=== PATIENT | male | born 1955 | race Caucasian/White ===

== ENCOUNTER → 2017-04-15 | Outpatient (REF) | payer OTHER ==
[~2017-04-15] MED LIST: /PANT40TA OR; ASPI81TA83 OR; CAND16TA OR; COLA100C2 OR; LIDO5DIS EX; MILKSUS OR; MULTIVIT PO; NABU750T OR; SKEL800T5 OR; dulcolax PR; norco PO
[2017-04-15 13:16] LABS: EOS # 0.2 K/mm3 (0.0-0.50); EOS % 3.2 % (0.0-3.0); LARGE UNSTAINED CELL # 0.1 K/mm3 (0.0-0.4); LARGE UNSTAINED CELL % 2.8 % (0.0-4.0); LYMPH # 1.6 K/mm3 (1.5-4.5); LYMPH % 30.5 % (24.0-44.0); MEAN CORPUSCULAR HEMOGLOBIN 32.7 pg (27.0-33.0); MEAN CORPUSCULAR HGB CONC 34.6 g/dl (32.0-36.5); MEAN CORPUSCULAR VOLUME 94.6 fl (80.0-96.0); MONO # 0.4 K/mm3 (0.0-0.8); MONO % 7.8 % (0.0-5.0); NEUTROPHILS # 2.7 K/mm3 (1.8-7.7); NEUTROPHILS % 54.6 % (36.0-66.0); PLATELET COUNT, AUTOMATED 208 k/mm3 (150-450); RED CELL DISTRIBUTION WIDTH 12.1 % (11.5-14.5); WHITE BLOOD COUNT 4.9 K/mm3 (4.0-10.0)
[2017-04-15 13:31] LABS: PERCENT SATURATION 95.4 % (19.7-37.4)
== END ==
LOC: M SFHCPLAZ 07:53
PROVIDERS: ATTEND Family Medicine
DX: D50.9 Iron deficiency anemia, unspecified (principal); R73.01 Impaired fasting glucose; E78.5 Hyperlipidemia, unspecified; I10 Essential (primary) hypertension

== ENCOUNTER → 2017-06-04 | Outpatient (CLI) | payer OTHER ==
--- NOTE | 2017-06-04 19:04 | REP ---
Left tibia-fibula two views: There are no comparisons. There is no fracture or dislocation. 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 If this is the location of the patient's symptoms, consider a radionuclide bone scan for further evaluation. There are accessory ossicles at the distal tips of the medial and lateral malleoli. Otherwise, negative left tibia fibula. Signed by Iglesia Desai MD 06/04/2017 06:55 P
== END ==
LOC: M WUC 17:21
PROVIDERS: ATTEND Physician Assistant
DX: M25.872 Other specified joint disorders, left ankle and foot (principal); M89.28 Other disorders of bone development and growth, other site

== ENCOUNTER → 2017-08-22 | Outpatient (REF) | payer OTHER ==
[2017-08-22 13:42] LABS: ALBUMIN 3.9 GM/DL (3.2-5.2); ALBUMIN/GLOBULIN RATIO 1.11 (1.00-1.93); ALKALINE PHOSPHATASE 86 U/L (45-117); ALT/SGPT 49 U/L (12-78); ANION GAP 7 MEQ/L (8-16); AST/SGOT 35 U/L (7-37); BILIRUBIN,TOTAL 1.4 MG/DL (0.2-1.0); BLOOD UREA NITROGEN 11 MG/DL (7-18); CALCIUM LEVEL 8.9 MG/DL (8.8-10.2); CARBON DIOXIDE LEVEL 29 MEQ/L (21-32); CHLORIDE LEVEL 104 MEQ/L (98-107); CREATININE FOR GFR 0.94 MG/DL (0.70-1.30); FERRITIN 133 NG/ML (26-388); GLOMERULAR FILTRATION RATE > 60.0 (>49); GLUCOSE, FASTING 121 MG/DL (80-110); PERCENT SATURATION 91.6 % (19.7-50.0); POTASSIUM SERUM 4.4 MEQ/L (3.5-5.1); SODIUM LEVEL 140 MEQ/L (136-145); TOTAL IRON BINDING CAPACITY 273 UG/DL (250-450); TOTAL PROTEIN 7.4 GM/DL (6.4-8.2)
[2017-08-22 13:48] LABS: INR 0.98
== END ==
LOC: M SFHCPLAZ 09:26
PROVIDERS: ATTEND Family Medicine
DX: E83.119 Hemochromatosis, unspecified (principal); D50.9 Iron deficiency anemia, unspecified; R73.01 Impaired fasting glucose

== ENCOUNTER 2017-10-17 10:42 | Day surgery (SDC) | payer BC, OTHER ==
[2017-10-17] MEDS: LR 1,000 ML IV ×2 (11:43→18:55)
[2017-10-17] MEDS ORDERED: fentaNYL 100 MCG/2 ML INJECTION (J3010) As Ordered (13:34)
[2017-10-17] MEDS ORDERED: MIDAZOLAM INJ 2 MG/2 ML VIAL (J2250) As Ordered (13:34)
[2017-10-17] MEDS: LIDOCAINE 1% SDV INJ 30 ML VIAL As Ordered (15:18)
[2017-10-17] MEDS: BACITRACIN PWD 50,000 UNITS VIAL As Ordered (15:35)
[2017-10-17] MEDS: ISOVUE-300 61% 50ML VIAL (Q9967) As Ordered (15:35)
[2017-10-17] MEDS: AMIODARONE HCL 360 MG/200 ML PREMIXED BAG (NEXTERONE) As Ordered (15:36)
[2017-10-17] MEDS ORDERED: fentaNYL 100 MCG/2 ML INJECTION (J3010) IV (15:45)
[2017-10-17] MEDS ORDERED: METOCLOPRAMIDE INJ 10MG/2ML VIAL (J2765) IV (15:45)
[2017-10-17] MEDS ORDERED: PERCOCET 5MG/325MG TAB PO (15:45)
[2017-10-17] MEDS ORDERED: ONDANSETRON 4MG/2ML VIAL (J2405) IV (15:45)
[2017-10-17] MEDS ORDERED: ACETAMINOPH W/CODEINE #3 TAB UD PO (16:30)
[2017-10-17] MEDS ORDERED: XYZAL 5 MG PO (16:30)
[2017-10-17] MEDS ORDERED: NITROGLYCERIN 0.4 MG SUBL TABLET SL (16:30)
[2017-10-17] MEDS ORDERED: ACETAMINOPHEN TAB 650MG DOSE (2X325MG) PO (16:30)
[2017-10-17] MEDS: METOPROLOL TART 25 MG TABLET PO ×2 (21:00→21:13)
[2017-10-17] MEDS: ATORVASTATIN 20 MG TAB PO (21:13)
[2017-10-17] MEDS: CEFAZOLIN SOD 1 GM in APPROPRIATE DILUENT 1 EA IV (22:15)
[2017-10-18] MEDS: CEFAZOLIN SOD 1 GM in APPROPRIATE DILUENT 1 EA IV ×2 (05:59→13:36)
[2017-10-18] MEDS: METOPROLOL TART 25 MG TABLET PO (09:12)
[2017-10-18] MEDS: ASPIRIN 81 MG ENTERIC TAB PO (09:12)
[2017-10-18] MEDS ORDERED: SLF 3 ML SYR IV (11:30)
[2017-10-18] MEDS: SLF 3 ML SYR IV (13:36)
== END 2017-10-18 14:45 | disposition home or self-care (01) ==
LOC: M SDC 10:42 → M PCU 16:37 → M SDC 10-18 14:45
DX: I44.0 Atrioventricular block, first degree (principal); I48.0 Paroxysmal atrial fibrillation; I77.819 Aortic ectasia, unspecified site; I25.10 Atherosclerotic heart disease of native coronary artery without angina pectoris; I11.9 Hypertensive heart disease without heart failure; Z98.61 Coronary angioplasty status; Z79.82 Long term (current) use of aspirin; Z79.899 Other long term (current) drug therapy
CPT/HCPCS: 33208

== ENCOUNTER → 2017-11-07 | Outpatient (CLI) | payer BC, OTHER | LOC: M RAD 07:54 | DX: E83.119 Hemochromatosis, unspecified (principal); R93.3 Abnormal findings on diagnostic imaging of other parts of digestive tract ==

== ENCOUNTER 2017-11-11 07:59 | Outpatient (CLI) | payer BC, OTHER ==
[2017-11-11 08:32] LABS: BASO % 0.7 % (0.0-1.0); EOS # 0.2 10^3/uL (0.0-0.50); EOS % 2.8 % (0.0-3.0); HEMATOCRIT 44.5 % (42.0-52.0); HEMOGLOBIN 15.6 g/dl (14.0-18.0); IMMATURE GRANULOCYTE % 0.2 % (0-3.0); LYMPH # 1.7 10^3/uL (1.5-4.5); LYMPH % 28.3 % (24.0-44.0); MEAN CORPUSCULAR HGB CONC 35.1 g/dl (32.0-36.5); MEAN CORPUSCULAR VOLUME 91.2 fl (80.0-96.0); MONO # 0.6 10^3/uL (0.0-0.8); MONO % 9.7 % (0.0-5.0); NEUTROPHILS # 3.5 10^3/uL (1.8-7.7); NEUTROPHILS % 58.3 % (36.0-66.0); PLATELET COUNT, AUTOMATED 212 10^3/uL (150-450); RED BLOOD COUNT 4.88 10^6/uL (4.30-6.10); RED CELL DISTRIBUTION WIDTH 11.1 % (11.5-14.5)
[2017-11-11 09:05] LABS: FERRITIN 121 NG/ML (26-388); IRON (FE) 132 UG/DL (65-175); PERCENT SATURATION 57.1 % (19.7-50.0); TOTAL IRON BINDING CAPACITY 231 UG/DL (250-450)
== END 2017-11-11 09:05 | disposition home or self-care (01) ==
LOC: M INFU 07:59
DX: E83.110 Hereditary hemochromatosis (principal); Z79.899 Other long term (current) drug therapy; Z88.8 Allergy status to other drugs, medicaments and biological substances; J30.9 Allergic rhinitis, unspecified; Z91.018 Allergy to other foods; Z95.5 Presence of coronary angioplasty implant and graft; Z95.0 Presence of cardiac pacemaker
CPT/HCPCS: 99195

== ENCOUNTER 2017-11-18 07:51 | Outpatient (CLI) | payer BC, OTHER ==
[2017-11-18 08:14] LABS: BASO # 0.1 10^3/uL (0.0-0.2); BASO % 0.9 % (0.0-1.0); EOS # 0.1 10^3/uL (0.0-0.50); EOS % 2.2 % (0.0-3.0); HEMOGLOBIN 16.3 g/dl (14.0-18.0); IMMATURE GRANULOCYTE % 0.2 % (0-3.0); LYMPH # 1.8 10^3/uL (1.5-4.5); LYMPH % 27.3 % (24.0-44.0); MEAN CORPUSCULAR HEMOGLOBIN 32.7 pg (27.0-33.0); MEAN CORPUSCULAR HGB CONC 35.4 g/dl (32.0-36.5); MEAN CORPUSCULAR VOLUME 92.2 fl (80.0-96.0); MONO # 0.8 10^3/uL (0.0-0.8); MONO % 13.1 % (0.0-5.0); NEUTROPHILS # 3.6 10^3/uL (1.8-7.7); NEUTROPHILS % 56.3 % (36.0-66.0); PLATELET COUNT, AUTOMATED 218 10^3/uL (150-450); RED BLOOD COUNT 4.99 10^6/uL (4.30-6.10); RED CELL DISTRIBUTION WIDTH 11.4 % (11.5-14.5); WHITE BLOOD COUNT 6.4 10^3/uL (4.0-10.0)
[2017-11-18 08:51] LABS: FERRITIN 88 NG/ML (26-388); IRON (FE) 92 UG/DL (65-175); PERCENT SATURATION 38.3 % (19.7-50.0); TOTAL IRON BINDING CAPACITY 240 UG/DL (250-450)
== END 2017-11-18 08:45 | disposition home or self-care (01) ==
LOC: M INFU 07:51
DX: E83.119 Hemochromatosis, unspecified (principal); Z79.899 Other long term (current) drug therapy; J30.2 Other seasonal allergic rhinitis; Z91.018 Allergy to other foods; Z91.030 Bee allergy status; Z95.5 Presence of coronary angioplasty implant and graft; Z95.0 Presence of cardiac pacemaker
CPT/HCPCS: 99195

== ENCOUNTER 2017-11-25 08:13 | Outpatient (CLI) | payer BC, OTHER ==
[2017-11-25 09:23] LABS: BASO % 0.8 % (0.0-1.0); EOS # 0.1 10^3/uL (0.0-0.50); EOS % 2.5 % (0.0-3.0); HEMATOCRIT 41.4 % (42.0-52.0); HEMOGLOBIN 14.5 g/dl (14.0-18.0); IMMATURE GRANULOCYTE % 0.2 % (0-3.0); LYMPH # 1.5 10^3/uL (1.5-4.5); LYMPH % 31.4 % (24.0-44.0); MEAN CORPUSCULAR HEMOGLOBIN 32.6 pg (27.0-33.0); MONO # 0.6 10^3/uL (0.0-0.8); MONO % 12.2 % (0.0-5.0); NEUTROPHILS # 2.6 10^3/uL (1.8-7.7); NEUTROPHILS % 52.9 % (36.0-66.0); PLATELET COUNT, AUTOMATED 202 10^3/uL (150-450); RED BLOOD COUNT 4.45 10^6/uL (4.30-6.10); RED CELL DISTRIBUTION WIDTH 11.8 % (11.5-14.5); WHITE BLOOD COUNT 4.8 10^3/uL (4.0-10.0)
[2017-11-25 09:52] LABS: FERRITIN 59 NG/ML (26-388); IRON (FE) 104 UG/DL (65-175); PERCENT SATURATION 40.5 % (19.7-50.0); TOTAL IRON BINDING CAPACITY 257 UG/DL (250-450)
== END 2017-11-25 09:05 | disposition home or self-care (01) ==
LOC: M INFU 08:13
DX: E83.119 Hemochromatosis, unspecified (principal); Z95.0 Presence of cardiac pacemaker; Z91.018 Allergy to other foods; Z91.030 Bee allergy status; Z79.01 Long term (current) use of anticoagulants; Z79.82 Long term (current) use of aspirin; Z79.899 Other long term (current) drug therapy
CPT/HCPCS: 99195

== ENCOUNTER 2017-12-02 07:56 | Outpatient (CLI) | payer BC, OTHER ==
[2017-12-02 08:29] LABS: BASO % 0.5 % (0.0-1.0); EOS # 0.2 10^3/uL (0.0-0.50); EOS % 1.9 % (0.0-3.0); HEMATOCRIT 42.9 % (42.0-52.0); HEMOGLOBIN 14.8 g/dl (14.0-18.0); IMMATURE GRANULOCYTE % 0.2 % (0-3.0); LYMPH # 1.5 10^3/uL (1.5-4.5); LYMPH % 17.8 % (24.0-44.0); MEAN CORPUSCULAR HGB CONC 34.5 g/dl (32.0-36.5); MEAN CORPUSCULAR VOLUME 92.7 fl (80.0-96.0); MONO # 0.9 10^3/uL (0.0-0.8); MONO % 10.6 % (0.0-5.0); NEUTROPHILS # 5.9 10^3/uL (1.8-7.7); PLATELET COUNT, AUTOMATED 198 10^3/uL (150-450); RED BLOOD COUNT 4.63 10^6/uL (4.30-6.10); RED CELL DISTRIBUTION WIDTH 11.9 % (11.5-14.5); WHITE BLOOD COUNT 8.6 10^3/uL (4.0-10.0)
[2017-12-02 09:05] LABS: FERRITIN 33 NG/ML (26-388); IRON (FE) 74 UG/DL (65-175); TOTAL IRON BINDING CAPACITY 264 UG/DL (250-450)
== END 2017-12-02 08:35 | disposition home or self-care (01) ==
LOC: M INFU 07:56
DX: E83.119 Hemochromatosis, unspecified (principal); I10 Essential (primary) hypertension; Z79.82 Long term (current) use of aspirin; Z79.899 Other long term (current) drug therapy; Z91.030 Bee allergy status; Z91.018 Allergy to other foods; Z95.0 Presence of cardiac pacemaker
CPT/HCPCS: 99195

== ENCOUNTER → 2018-03-03 | Outpatient (REF) | payer OTHER ==
[2018-03-03 14:12] LABS: APPEARANCE, URINE HAZY (CLEAR); BACTERIA, URINE AUTO NEGATIVE (NEGATIVE); BILIRUBIN, URINE AUTO NEGATIVE (NEGATIVE); BLOOD, URINE BLOOD NEGATIVE (NEGATIVE); COLOR, URINE YELLOW (YELLOW); GLUCOSE, URINE (UA) AUTO NEGATIVE (NEGATIVE); KETONE, URINE AUTO NEGATIVE (NEGATIVE); LEUKOCYTE ESTERASE, URINE AUTO NEGATIVE (NEGATIVE); MUCUS, URINE SMALL (NEGATIVE); NITRITE, URINE AUTO NEGATIVE (NEGATIVE); PROTEIN, URINE AUTO NEGATIVE (NEGATIVE); RBC, URINE AUTO 0 /HPF (0-3); SPECIFIC GRAVITY URINE AUTO 1.016 (1.002-1.035); SQUAMOUS EPITHELIAL CELL UR AU 0 /HPF (0-6); WBC, URINE AUTO 2 /HPF (0-3)
[2018-03-03 14:29] LABS: BILIRUBIN,DIRECT 0.3 MG/DL (0.0-0.2); C REACTIVE PROTEIN QUANTITATIV < 0.30 MG/DL (0.00-0.30); CHOLESTEROL LEVEL 94 MG/DL (<200); CHOLESTEROL RISK RATIO 2.136 (<5); CPK CREATINE PHOSPHOKINASE 152 U/L (39-308); ESTIMATED AVERAGE GLUCOSE 114 MG/DL (60-110); FERRITIN 24 NG/ML (26-388); FREE T4 0.82 NG/DL (0.76-1.46); HDL CHOLESTEROL 44 MG/DL (>40); HEMOGLOBIN A1c 5.6 %; IRON (FE) 135 UG/DL (65-175); LDL CHOLESTEROL 35.6 MG/DL (<100); NON-HDL-C 50 MG/DL; PSA SCREENING 0.45 NG/ML (< 4.0); TOTAL IRON BINDING CAPACITY 287 UG/DL (250-450); TRIGLYCERIDES LEVEL 72 MG/DL (<150)
[2018-03-03 14:54] LABS: MALB URINE SIEMENS 52.4 MG/L
[2018-03-04 14:16] LABS: INSULIN LEVEL 14.9 uIU/mL (2.6-24.9)
== END ==
LOC: M SFHCPLAZ 09:30
DX: E83.119 Hemochromatosis, unspecified (principal); E78.5 Hyperlipidemia, unspecified; R73.01 Impaired fasting glucose; Z12.5 Encounter for screening for malignant neoplasm of prostate

== ENCOUNTER → 2018-05-08 | Outpatient (REF) | payer OTHER ==
[2018-05-08 10:52] LABS: BASO % 0.7 % (0.0-1.0); EOS # 0.1 10^3/uL (0.0-0.50); EOS % 1.6 % (0.0-3.0); HEMATOCRIT 46.9 % (42.0-52.0); HEMOGLOBIN 15.8 g/dl (13.5-17.5); IMMATURE GRANULOCYTE % 0.2 % (0-3.0); LYMPH # 1.5 10^3/uL (1.5-4.5); MEAN CORPUSCULAR HEMOGLOBIN 30.9 pg (27.0-33.0); MEAN CORPUSCULAR HGB CONC 33.7 g/dl (32.0-36.5); MEAN CORPUSCULAR VOLUME 91.6 fl (80.0-96.0); MONO # 0.3 10^3/uL (0.0-0.8); NEUTROPHILS # 2.3 10^3/uL (1.8-7.7); NEUTROPHILS % 53.5 % (36.0-66.0); RED BLOOD COUNT 5.12 10^6/uL (4.30-6.10); RED CELL DISTRIBUTION WIDTH 12.7 % (11.5-14.5); WHITE BLOOD COUNT 4.3 10^3/uL (4.0-10.0)
[2018-05-08 10:57] LABS: POS COUNT POS FLAG
[2018-05-08 11:30] LABS: ALBUMIN 3.7 GM/DL (3.2-5.2); ANION GAP 10 MEQ/L (8-16); BLOOD UREA NITROGEN 21 MG/DL (7-18); CALCIUM LEVEL 8.4 MG/DL (8.8-10.2); CARBON DIOXIDE LEVEL 24 MEQ/L (21-32); CHLORIDE LEVEL 108 MEQ/L (98-107); CREATININE FOR GFR 0.94 MG/DL (0.70-1.30); GLOMERULAR FILTRATION RATE > 60.0 (>49); GLUCOSE, FASTING 147 MG/DL (70-100); PHOSPHORUS LEVEL 2.4 MG/DL (2.5-4.9); POTASSIUM SERUM 4.5 MEQ/L (3.5-5.1); SODIUM LEVEL 142 MEQ/L (136-145)
== END ==
LOC: M LABDRAW1 09:19
DX: I11.9 Hypertensive heart disease without heart failure (principal); I48.0 Paroxysmal atrial fibrillation; I25.10 Atherosclerotic heart disease of native coronary artery without angina pectoris

== ENCOUNTER → 2018-08-31 | Outpatient (CLI) | payer BC, OTHER | LOC: M RAD 11:38 | DX: I48.0 Paroxysmal atrial fibrillation (principal); Z95.0 Presence of cardiac pacemaker | CPT/HCPCS: 71046 ==

== ENCOUNTER → 2018-09-04 | Outpatient (REF) | payer OTHER ==
[2018-09-04 12:06] LABS: BASO # 0.1 10^3/uL (0.0-0.2); BASO % 1.1 % (0.0-1.0); EOS # 0.1 10^3/uL (0.0-0.50); EOS % 2.6 % (0.0-3.0); HEMATOCRIT 45.5 % (42.0-52.0); HEMOGLOBIN 14.9 g/dl (13.5-17.5); IMMATURE GRANULOCYTE % 0.2 % (0-3.0); LYMPH # 1.4 10^3/uL (1.5-4.5); LYMPH % 29.3 % (24.0-44.0); MEAN CORPUSCULAR HEMOGLOBIN 29.7 pg (27.0-33.0); MEAN CORPUSCULAR HGB CONC 32.7 g/dl (32.0-36.5); MEAN CORPUSCULAR VOLUME 90.6 fl (80.0-96.0); MONO # 0.6 10^3/uL (0.0-0.8); NEUTROPHILS # 2.5 10^3/uL (1.8-7.7); NEUTROPHILS % 53.8 % (36.0-66.0); PLATELET COUNT, AUTOMATED 240 10^3/uL (150-450); RED BLOOD COUNT 5.02 10^6/uL (4.30-6.10); RED CELL DISTRIBUTION WIDTH 12.9 % (11.5-14.5); RETIC HEMOGLOBIN EQUIVALENT 32.1 pg (24-36); RETICULOCYTE # 63.3 10^9/L (17-77); RETICULOCYTE % 1.3 % (0.5-1.5); WHITE BLOOD COUNT 4.6 10^3/uL (4.0-10.0)
[2018-09-04 12:49] LABS: ALBUMIN/GLOBULIN RATIO 1.14 (1.00-1.93); ALKALINE PHOSPHATASE 91 U/L (45-117); ALT/SGPT 42 U/L (12-78); ANION GAP 9 MEQ/L (8-16); AST/SGOT 33 U/L (7-37); BILIRUBIN,TOTAL 1.1 MG/DL (0.2-1.0); BLOOD UREA NITROGEN 14 MG/DL (7-18); CALCIUM LEVEL 8.9 MG/DL (8.8-10.2); CARBON DIOXIDE LEVEL 25 MEQ/L (21-32); CHLORIDE LEVEL 104 MEQ/L (98-107); CREATININE FOR GFR 0.96 MG/DL (0.70-1.30); FERRITIN 18 NG/ML (26-388); FREE T4 1.11 NG/DL (0.76-1.46); GLOMERULAR FILTRATION RATE > 60.0 (>49); GLUCOSE, FASTING 97 MG/DL (70-100); IRON (FE) 89 UG/DL (65-175); MAGNESIUM LEVEL 2.4 MG/DL (1.8-2.4); PERCENT SATURATION 30.8 % (19.7-50.0); POTASSIUM SERUM 4.7 MEQ/L (3.5-5.1); SODIUM LEVEL 138 MEQ/L (136-145); THYROID STIMULATING HORMONE 0.852 uIU/ML (0.358-3.740); TOTAL IRON BINDING CAPACITY 289 UG/DL (250-450); TOTAL PROTEIN 7.5 GM/DL (6.4-8.2); VITAMIN B12 LEVEL 1183 PG/ML (247-911)
[2018-09-04 15:07] LABS: ESTIMATED AVERAGE GLUCOSE 134 MG/DL (60-110); HEMOGLOBIN A1c 6.3 %
== END ==
LOC: M SFHCPLAZ 07:49
DX: E83.119 Hemochromatosis, unspecified (principal); R73.01 Impaired fasting glucose
CPT/HCPCS: 83550

== ENCOUNTER 2019-02-02 17:21 | Observation (INO) | payer BC, OTHER ==
[~2019-02-02] VITALS: Ht 177.8 cm; Wt 100.2 kg
[~2019-02-02 17:21] MED LIST changes: -/PANT40TA OR; +ASPI-255 PO; +ASPI81TA85 PO; +ATOR80TA59 PO; +CARV12.5 PO; +ELIQ5TAB PO; +LISI-542 PO; +METO1TAB87 PO; +MULT1TAB10 PO; +NITROGLYCERIN PO; +PROT1TAB2 OR; +VIAG100T PO; +XYZA5TAB2 PO
[2019-02-02] MEDS ORDERED: AMIO200T PO (17:39)
[2019-02-02 18:08] LABS: BASO # 0.1 10^3/uL (0.0-0.2); BASO % 0.7 % (0.0-1.0); EOS # 0.1 10^3/uL (0.0-0.50); EOS % 1.3 % (0.0-3.0); HEMATOCRIT 44.4 % (42.0-52.0); HEMOGLOBIN 14.2 g/dl (13.5-17.5); LYMPH # 1.2 10^3/uL (1.5-4.5); LYMPH % 17.5 % (24.0-44.0); MEAN CORPUSCULAR HEMOGLOBIN 27.4 pg (27.0-33.0); MEAN CORPUSCULAR VOLUME 85.5 fl (80.0-96.0); MONO # 0.6 10^3/uL (0.0-0.8); MONO % 8.5 % (0.0-5.0); NEUTROPHILS % 71.7 % (36.0-66.0); PLATELET COUNT, AUTOMATED 252 10^3/uL (150-450); RED BLOOD COUNT 5.19 10^6/uL (4.30-6.10); WHITE BLOOD COUNT 6.9 10^3/uL (4.0-10.0)
--- NOTE | 2019-02-02 18:37 | REPVR ---
EXAM: CT Head Without Contrast EXAM DATE/TIME: 02/02/2019 5:47 PM CLINICAL HISTORY: 63 years old, male; Signs and symptoms; Altered mental status/memory loss TECHNIQUE: Imaging protocol: Axial computed tomography images of the head without contrast. Radiation optimization: All CT scans at this facility use at least one of these dose optimization techniques: automated exposure control; mA and/or kV adjustment per patient size (includes targeted exams where dose is matched to clinical indication); or iterative reconstruction. COMPARISON: CT Head without contrast 10/27/2012 7:38 PM FINDINGS: Brain: Bilateral basal ganglia calcifications. Otherwise unremarkable. Ventricles: Normal. No ventriculomegaly. Bones/joints: Unremarkable. No acute fracture. Sinuses: Visualized sinuses are unremarkable. No fluid levels. Mastoid air cells: Visualized mastoid air cells are well aerated. No mastoid effusion. Soft tissues: Unremarkable. IMPRESSION: No acute findings. Electronically signed by: Sachin Gray On 02/02/2019 18:36:53 PM
[2019-02-02 18:39] LABS: ALBUMIN 3.9 GM/DL (3.2-5.2); ALT/SGPT 37 U/L (12-78); BILIRUBIN,DIRECT 0.2 MG/DL (0.0-0.2); BILIRUBIN,TOTAL 0.9 MG/DL (0.2-1.0); BLOOD UREA NITROGEN 17 MG/DL (7-18); CALCIUM LEVEL 8.9 MG/DL (8.8-10.2); CARBON DIOXIDE LEVEL 26 MEQ/L (21-32); CHLORIDE LEVEL 106 MEQ/L (98-107); CPK CREATINE PHOSPHOKINASE 181 U/L (39-308); CREATININE FOR GFR 1.28 MG/DL (0.70-1.30); GLOMERULAR FILTRATION RATE > 60.0 (>49); GLUCOSE, FASTING 118 MG/DL (70-100); POTASSIUM SERUM 4.8 MEQ/L (3.5-5.1); SODIUM LEVEL 138 MEQ/L (136-145); TOTAL PROTEIN 8.1 GM/DL (6.4-8.2); TROPONIN I < 0.02 NG/ML (< 0.10)
--- NOTE | 2019-02-02 18:45 | REPVR ---
EXAM: CT Cervical Spine Without Contrast EXAM DATE/TIME: 02/02/2019 5:59 PM CLINICAL HISTORY: 63 years old, male; Injury or trauma; Fall; Initial encounter; Blunt trauma; Additional info: Fall, neck pain TECHNIQUE: Imaging protocol: Axial computed tomography images of the cervical spine without contrast. Coronal and sagittal reformatted images were created and reviewed. Radiation optimization: All CT scans at this facility use at least one of these dose optimization techniques: automated exposure control; mA and/or kV adjustment per patient size (includes targeted exams where dose is matched to clinical indication); or iterative reconstruction. COMPARISON: No relevant prior studies available. FINDINGS: Vertebrae: Degenerative spondylosis. Degenerative changes lateralizing joint. Discs/Spinal canal/Neural foramina: Prominent intervertebral osteophytes from C2-C7. Disc osteophyte complexes from C2-C6 7 resulting in varying degrees of effacement of the ventral subarachnoid with mild cord impingement at C5-6. This moderate foraminal stenosis on the right at C3, and C4 secondary to uncinate joint hypertrophic change. Soft tissues: Unremarkable. Lungs: Lung apices are normal. IMPRESSION: Mild degenerative spondylosis. No acute findings. Electronically signed by: Sachin Gray On 02/02/2019 18:45:43 PM
--- NOTE | 2019-02-02 19:01 | REP ---
Right ribs four views: There is no rib fracture or other rib abnormality. PA chest: Comparison is 11/01/2017. There is no pneumothorax, hemothorax or pulmonary contusion. No pleural thickening. There is a dual-chamber pacemaker entering from left, unchanged. Lung mercado are clear. Cardiac size is normal. The bertin, mediastinum, skeletal structures are unremarkable. Impression: Dual chamber pacemaker. Otherwise, negative PA chest. Electronically Signed by Iglesia Desai MD 02/02/2019 06:53 P
[2019-02-02] MEDS ORDERED: METHOCARBAMOL 500 MG TAB PO ONE (19:15)
[2019-02-02] MEDS ORDERED: NS 1,000 ML IV ONE (19:15)
[2019-02-02] MEDS ORDERED: KETOROLAC 30 MG/ML VIAL (J1885) IV ONE (19:15)
[2019-02-02] MEDS ORDERED: ISOVUE-370 76% 100ML VIAL (Q9967) As Ordered ONE (19:23)
--- NOTE | 2019-02-02 19:55 | REPVR ---
EXAM: CT Angiography Chest With Contrast EXAM DATE/TIME: 02/02/2019 7:37 PM CLINICAL HISTORY: 63 years old, male; Pain; Angina pectoris; Additional info: Chest pain TECHNIQUE: Imaging protocol: Axial computed tomographic angiography images of the chest with intravenous contrast using CT angiography protocol. Coronal and sagittal reformatted images were created and reviewed. 3D rendering: MIP reconstructed images were created and reviewed. Radiation optimization: All CT scans at this facility use at least one of these dose optimization techniques: automated exposure control; mA and/or kV adjustment per patient size (includes targeted exams where dose is matched to clinical indication); or iterative reconstruction. Contrast material: ISO 370; Contrast volume: 75 ml; Contrast route: IV; COMPARISON: CR Ribs uni W-PA CHEST ONLY 02/02/2019 6:14 PM FINDINGS: Tubes, catheters and devices: Cardiac pacemaker in place. Pulmonary arteries: There are no pulmonary emboli. Aorta: There is no aortic dissection or aneurysm. Lungs: There is bibasilar compressive atelectasis. Pleural space: Normal. No pneumothorax. No pleural effusion. Heart: There is mild atherosclerotic calcification of the coronary arteries. Lymph nodes: Unremarkable. No enlarged lymph nodes. Bones/joints: The spine demonstrates mild degenerative changes. Soft tissues: Unremarkable. IMPRESSION: 1. There are no pulmonary emboli. 2. There is no aortic dissection or aneurysm. 3. There are no acute pulmonary parenchymal findings. Electronically signed by: Sachin Gray On 02/02/2019 19:55:21 PM
[2019-02-02] MEDS ORDERED: VITMTA PO (21:33)
[2019-02-02] MEDS ORDERED: NITR0.1S PO (21:33)
[2019-02-02] MEDS ORDERED: LEVOTAB10 PO (21:33)
[2019-02-02] MEDS ORDERED: ASPI-161 PO (21:33)
[2019-02-02 23:00] VITALS: BP 147/74
[2019-02-02] MEDS: APIXABAN 5 MG TAB (ELIQUIS) PO SCH (23:31)
[2019-02-02] MEDS: LISINOPRIL 5 MG TAB PO SCH (23:31)
[2019-02-02] MEDS: ATORVASTATIN 20 MG TAB PO SCH (23:31)
[2019-02-02] MEDS: CARVedilol 6.25 MG TAB PO SCH (23:31)
[2019-02-03 00:17] LABS: CPK CREATINE PHOSPHOKINASE 113 U/L (39-308); MB/CK RELATIVE INDEX 2.39 (< OR =4); TROPONIN I < 0.02 NG/ML (< 0.10)
[2019-02-03] MEDS ORDERED: KETOROLAC 30 MG/ML VIAL (J1885) IV ONE (03:15)
[2019-02-03 06:00] VITALS: BP 114/59
--- NOTE | 2019-02-03 06:00 | HPEPDOC ---
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 fib (on Eliquis) who presented to the emergency department after a syncopal episode. Patient reports being in his usual state of health as he was assisting a neighbor move a lawnmower. He states that after completing this task, he began to feel lightheaded and nauseous. Patient subsequently laid down with near complete resolution of his symptoms in a matter of minutes. After such time, the patient again stood up and began to walk toward his car to return home. It was at this time he again became dizzy/nauseated and believes he fell to the ground where he remained for a number of minutes. Once coming to, patient noted to have increasing back discomfort. He drove himself back home and only after sharing the aforementioned events with his family, was the patient persuaded to present to the emergency department. Upon presentation, patient complained of pain across his shoulder blades in the right side of his neck. Patient also reports, that earlier in the day, he did visit his legal compliance officer who successfully interrogated his pacemaker without issue. The emergency department, the patient received a number of imaging studies which included examination of the patient's head and chest. All of the information studies were negative for any acute disease processes. Patient was found to have a right sided pain or spinal muscle spasm. He was treated using a muscle relaxer, ketorolac and required additional therapy with diazepam. Orthostatics were performed and were found to be positive. Given this, the hospitalist team was consulted for further management and observation. PAST MEDICAL HISTORY: Nonalcoholic fatty liver disease Hemochromatosis, homozygote Hyperlipidemia Hypertension Lumbar degenerative disc disease Thoracic degenerative disc disease Cholelithiasis CAD status post circumflex/RCA stent placement AVB second-degree type I status post pacemaker placement Atrial fibrillation, paroxysmal PAST SURGICAL HISTORY: Right hamate surgery, April 2002 Colonoscopy, August 2011 Pacemaker placement, September 2017 SOCIAL HISTORY: Marital status: Single Resides in: Alone home Tobacco use: Lifelong nonsmoker ETOH: Patient denies alcohol use Illicit drug use: Patient denies illicit drug use FAMILY HISTORY: Father: , 68, first MT at 62 Mother: , mid-70s, for CVA and 60s Siblings: Brother, 60 at for CVA, sister with pancreatic cancer, diagnosed at 75 years old ALLERGIES: Please see below. REVIEW OF SYSTEMS: CONSTITUTIONAL: Patient denies recent subjective fevers, chills, night sweats, changes in weight or increasing fatigue HEENT: Denies headache, changes in vision, difficulty swallowing CARDIOVASCULAR: Patient presented reporting mid scapular pain which radiated anteriorly bilaterally RESPIRATORY: Patient denies any difficulty breathing, no recent history of cough GASTROINTESTINAL: Patient reports nausea immediately following syncopal episode, Patient denies any emesis, abdominal pain/discomfort, constipation or diarrhea GENITOURINARY: Denies difficulty urinating, hematuria, dysuria SKIN: Denies skin rashes or new/evolving lesions MUSCULOSKELETAL: Patient reports right-sided subscapular muscle spasm, with pain radiating anteriorly, worse with movement NEUROLOGICAL: Upon presentation, patient reported a syncopal episode, at the time of admission, patient syncope had resolved, he denied any numbness or tingling in his extremities, denies focal neurologic deficits HOME MEDICATIONS: Please see below. PHYSICAL EXAMINATION: VITAL SIGNS: Temperature 96.7, pulse 69, respiratory rate 17, blood pressure 139/78 (98), pulse oximetry 98% on room air. GENERAL APPEARANCE: Patient was interviewed and examined in the emergency department, patient was found to be seated upright in his emergency room bed, wearing hospital clothing,, alert and oriented, able to answer questions angelic ropriately participate in his care HEENT: Normocephalic, atraumatic, EOMI, good oral hygiene, trachea midline CARDIOVASCULAR: Regular rate and rhythm, normal S1 and S2, no murmurs LUNGS: Clear to ausc. bilaterally, free of wheezing rales or rhonchi ABDOMEN: Soft, nontender, nondistended MUSCULOSKELETAL: Appreciable muscle spasm in the right parathoracic musculature EXTREMITIES: No lower extremity swelling or edema, calves nontender bilaterally NEUROLOGICAL: No focal neurologic deficits, extremity weakness, difficulty speaking, aphasia PSYCHIATRIC: Mood and affect are appropriate LABORATORY DATA: See below. IMAGING: Head CT (02/02/19): No acute findings Ribs x-ray (02/02/19): Dual-chamber pacemaker, otherwise negative PA chest. Cervical spine CT(02/02/19): Mild degenerative spondylosis, no acute findings CT angiogram(02/02/19): There are no pulmonary emboli, no aortic dissection or aneurysm, no acute pulmonary parenchymal findings ASSESSMENT: Patient is a 63-year-old white male, pertinent medical history of NAFL, hemochromatosis, hypertension, hyperlipidemia, lumbar and thoracic degenerative disc disease, CAD status post stents 2 and AVB second-degree type I status post pacemaker placement, who presents emergency department on 02/02/19 with a chief complaint of unwitnessed syncope and right paraspinal muscle spasm. In the emergency department, patient received extensive workup for syncope with imaging and lab studies revealing benign results. Also well in the ED, Patient was found to be orthostatic, hospitalist team was consulted for further management and observation. PLAN: Syncope, status post orthostatic hypotension Prior to admission, patient was found to be orthostatic in the emergency department. Patient's home dose of carvedilol was reduced from 12.5 mg by mouth twice a day to 6.25 mg by mouth twice a day, as carvedilol is known to have orthostatic side effects Patient given IV fluids in the emergency department, continued IV fluids on the floor Continue to monitor blood pressure Right thoracic paraspinal muscle spasm Emergency department, patient received 30 mg ketorolac IV, methocarbamol 500 mg by mouth and required additional treatment with 2 mg IV of diazepam. Continue patient on ketorolac as needed with eventual transition to by mouth ibuprofen when necessary Continue to monitor for improvement Coronary artery disease, stent placement Patient did present complaining of nonspecific chest pain radiating from the back. Initial troponins negative. Repeat troponins and 6 hours to rule out recurring ACS Continue home medications AVB second-degree type I with pacemaker placement Patient was seen by cardiology on 02/02/19, at which time his pacemaker was successfully interrogated without issue Place patient on telemetry and monitor Paroxysmal atrial fibrillation Patient was not found to be in atrial fibrillation at the time of admission Patient does have a pacemaker and is paced around 70 bpm Continue home anticoagulation Hyperlipidemia Continue home statin therapy DVT prophylaxis: Tends and sequentials CODE STATUS: Full code Vital Signs Vital Signs Date Time Temp Pulse Resp B/P (MAP) Pulse Ox O2 Delivery O2 Flow Rate FiO2 02/02/19 23:31 69 02/02/19 23:31 147/74 02/02/19 23:00 98.6 18 98 02/02/19 17:21 Room Air Laboratory Data Labs 24H Laboratory Tests 2 02/02/19 17:56: Immature Granulocyte % (Auto) 0.3, White Blood Count 6.9, Red Blood Count 5.19, Hemoglobin 14.2, Hematocrit 44.4, Mean Corpuscular Volume 85.5, Mean Corpuscular Hemoglobin 27.4, Mean Corpuscular Hemoglobin Concent 32.0, Red Cell Distribution Width 13.8, Platelet Count 252, Neutrophils (%) (Auto) 71.7H, Lymphocytes (%) (Auto) 17.5L, Monocytes (%) (Auto) 8.5H, Eosinophils (%) (Auto) 1.3, Basophils (%) (Auto) 0.7, Neutrophils # (Auto) 5.0, Lymphocytes # (Auto) 1.2L, Monocytes # (Auto) 0.6, Eosinophils # (Auto) 0.1, Basophils # (Auto) 0.1, Nucleated Red Blood Cells % (auto) 0.0, Anion Gap 6L, Glomerular Filtration Rate > 60.0, Calcium Level 8.9, Aspartate Amino Transf (AST/SGOT) 33, Alanine Aminotransferase (ALT/SGPT) 37, Alkaline Phosphatase 97, Total Bilirubin 0.9, Direct Bilirubin 0.2, Total Creatine Kinase 181, Creatine Kinase MB 4.0H, Creatine Kinase MB Relative Index 2.10, Troponin I < 0.02, Total Protein 8.1, Albumin 3.9, Albumin/Globulin Ratio 0.93L, Thyroid Stimulating Hormone (TSH) 1.460 02/02/19 23:30: Total Creatine Kinase 113, Creatine Kinase MB 3.0, Creatine Kinase MB Relative Index 2.39, Troponin I < 0.02 CBC/BMP Laboratory Tests 02/02/19 17:56 Red Blood Count 5.19, Mean Corpuscular Volume 85.5, Mean Corpuscular Hemoglobin 27.4, Mean Corpuscular Hemoglobin Concent 32.0, Red Cell Distribution Width 13.8, Neutrophils (%) (Auto) 71.7 H, Lymphocytes (%) (Auto) 17.5 L, Monocytes (%) (Auto) 8.5 H, Eosinophils (%) (Auto) 1.3, Basophils (%) (Auto) 0.7, Neutrophils # (Auto) 5.0, Lymphocytes # (Auto) 1.2 L, Monocytes # (Auto) 0.6, Eosinophils # (Auto) 0.1, Basophils # (Auto) 0.1 Home Medications Scheduled Amiodarone HCl (Amiodarone HCl) 200 Mg Tablet, 200 MG PO DAILY Apixaban (Eliquis) 5 Mg Tab, 5 MG PO BID Aspirin (Aspirin EC) 81 Mg Tablet.dr, 81 MG PO DAILY Atorvastatin Calcium (Atorvastatin Calcium) 80 Mg Tab, 80 MG PO QHS Carvedilol (Carvedilol) 12.5 Mg Tab, 12.5 MG PO BID Lisinopril (Lisinopril) 5 Mg Tab, 5 MG PO QHS Multivitamins (Thera M Plus Tablet) 1 Each Tablet, 1 TAB PO DAILY Scheduled PRN Levocetirizine Dihydrochloride (Levocetirizine Dihydrochloride) 5 Mg Tablet, 5 MG PO DAILY PRN for ALLERGIES Nitroglycerin (Nitroglycerin) 4.9 Gm [place], 1 SPRAY PO NITRO PRN for CHEST PAIN Sildenafil Citrate (Viagra) 100 Mg Tab, 50 MG PO ASDIRECTED PRN for ERECTILE DYSFUNCTION Allergies Coded Allergies: strawberry (Verified Allergy, Severe, ANAPHYLAXIS, 02/02/19) bee venom protein (honey bee) (Verified Allergy, Unknown, 02/02/19) GME ATTESTATION GME ATTESTATION My faculty preceptor for this patient encounter was physically present during the encounter and was fully available. All aspects of the patient interview, examination, medical decision making process, and medical care plan development were reviewed and approved by the faculty preceptor. The faculty preceptor is aware and concurs with the plan as stated in the body of this note and will attest to such by his/her cosignature. AUGUSTA MORIN DO February 03, 2019 06:00
[2019-02-03 06:33] VITALS: BP_SYST 113; BP_SYST 129; BP_DIAS 62; BP_DIAS 66; BP_DIAS 70
[2019-02-03 07:11] LABS: HEMATOCRIT 37.9 % (42.0-52.0); HEMOGLOBIN 12.4 g/dl (13.5-17.5); MEAN CORPUSCULAR HEMOGLOBIN 27.4 pg (27.0-33.0); MEAN CORPUSCULAR HGB CONC 32.7 g/dl (32.0-36.5); MEAN CORPUSCULAR VOLUME 83.8 fl (80.0-96.0); PLATELET COUNT, AUTOMATED 216 10^3/uL (150-450); RED BLOOD COUNT 4.52 10^6/uL (4.30-6.10)
[2019-02-03 07:50] LABS: ALBUMIN 3.2 GM/DL (3.2-5.2); ALT/SGPT 33 U/L (12-78); BILIRUBIN,TOTAL 0.8 MG/DL (0.2-1.0); BLOOD UREA NITROGEN 18 MG/DL (7-18); CALCIUM LEVEL 8.2 MG/DL (8.8-10.2); CARBON DIOXIDE LEVEL 26 MEQ/L (21-32); CHLORIDE LEVEL 109 MEQ/L (98-107); CREATININE FOR GFR 1.11 MG/DL (0.70-1.30); GLOMERULAR FILTRATION RATE > 60.0 (>49); GLUCOSE, FASTING 105 MG/DL (70-100); POTASSIUM SERUM 3.9 MEQ/L (3.5-5.1); SODIUM LEVEL 139 MEQ/L (136-145); TOTAL PROTEIN 7.1 GM/DL (6.4-8.2)
[2019-02-03] MEDS: MULTIVITAMINS/MINERALS THERAP 1 TAB PO SCH (08:02)
[2019-02-03] MEDS: AMIODARONE 200 MG TAB (PACERONE) PO SCH (08:03)
[2019-02-03] MEDS: APIXABAN 5 MG TAB (ELIQUIS) PO SCH ×2 (08:03→20:15)
[2019-02-03] MEDS: ASPIRIN 81 MG ENTERIC TAB PO SCH (08:03)
[2019-02-03] MEDS: CARVedilol 6.25 MG TAB PO SCH (08:03)
[2019-02-03] MEDS ORDERED: CYCLOBENZAPRINE 5MG TABLET PO PRN (12:00)
[2019-02-03] MEDS ORDERED: ACETAMINOPHEN TAB 650MG DOSE (2X325MG) PO PRN (12:00)
--- NOTE | 2019-02-03 12:14 | IPNPDOC ---
Subjective Date Seen The patient was seen on 02/03/19. Subjective Chief Complaint/HPI Patient denies any further light-headedness/syncope since midnight. He does report upper back pain with intense spasms causing a lot of discomfort. He fell yesterday landing on his back. Pain and spasm have been present since his fall. Constitutional: Denies: Chills, Fever Pulmonary: Denies: Dyspnea, Cough Cardiovascular: Denies: Chest Pain, Palpitations, Orthopnea, Edema, Lt Headedness Gastrointestinal: Denies: Nausea, Vomiting, Abdominal Pain Musculoskeletal: Reports: Back Pain, Other Symptoms (Spasm ) Psych: Reports: Mood Normal Objective Physical Examination General Exam: Positive: Alert, Cooperative, Mild Distress (back pain ) Eye Exam: Positive: EOMI Neck Exam: Positive: Supple; Negative: JVD Chest Exam: Positive: Clear to auscultation, Normal air movement, Other (tenderness upon palpation right trap region. No spinous process tenderness); Negative: Rales, Rhonchi, Wheezing Heart Exam: Positive: Rate Normal, Regular Rhythm Abdomen Exam: Positive: Normal bowel sounds, Soft; Negative: Tenderness Extremity Exam: Negative: Edema Psych Exam: Positive: Mental status NL, Mood NL A-FIB/CHADSVASC A-FIB History Current/History of A-Fib/PAF?: Yes Current Oral Anticoagulant The: Yes (Matthew ) Assessment /Plan Problems (1) Syncope Status: Acute Response to Treatment: Stable Problem Text: 02/03/19: Symptoms appear to have resolved. Patient with pacemaker interrogation yesterday at cardiology. Syncope felt to be related to dehydration. Patient received IVF. He is with good oral intake CT Head: FINDINGS: Brain: Bilateral basal ganglia calcifications. Otherwise unremarkable. Ventricles: Normal. No ventriculomegaly. Bones/joints: Unremarkable. No acute fracture. Sinuses: Visualized sinuses are unremarkable. No fluid levels. Mastoid air cells: Visualized mastoid air cells are well aerated. No mastoid effusion. Soft tissues: Unremarkable. CTA: IMPRESSION: 1. There are no pulmonary emboli. 2. There is no aortic dissection or aneurysm. 3. There are no acute pulmonary parenchymal findings. Chest X-ray: Impression: Dual chamber pacemaker. Otherwise, negative PA chest (2) Muscle spasm Status: Acute Problem Text: 02/03/19: Patient was given Toradol, Valium and MEthocarbamol last evening for spasm which he states did not help much. I will add Tylenol prn and Flexeril prn spasms. CT scan negative CT Spine: IMPRESSION: Mild degenerative spondylosis. No acute findings. (3) Orthostatic syncope Status: Acute Response to Treatment: Stable Problem Text: 02/03/19: Ortho stats unremarkable Plan/VTE VTE Prophylaxis Ordered?: Yes ([facility]quis ) Plan Family Medicine Attending Note: I saw and examined Mr. Husain, discussed with Brock Starks DNP. Agree with her note as documented. His major problem is back spasm from his acute muscular injury as result of his fall. I prescribed Valium when necessary to see if we control his symptoms. I also asked Dr. Weaver to see him and to adjust his pacemaker. Later in the day he reported to me that he turned off a function of the pacer which allows his heart rate to fall below 70 well he's resting. Additionally he turned on another function allows his pacemaker to adaptively increase his heart rate when he is more active. In addition will DC his carvedilol and start him on atenolol on the theory that the slight alpha activity of the carvedilol might make him more prone to orthostasis. Dr. Weaver reported to me that the patient was taken a short walk after these changes and reported that the dizziness had resolved. I anticipate we can probably send him home tomorrow. 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, I&O, 24H, Fishbone Vital Signs/I&O Vital Signs Date Time Temp Pulse Resp B/P (MAP) Pulse Ox O2 Delivery O2 Flow Rate FiO2 02/03/19 08:03 58 131/67 02/03/19 06:00 98.2 18 100 02/02/19 17:21 Room Air I&O- Last 24 Hours up to 6 AM 02/03/19 06:00 Intake Total 420 ml Output Total 400 ml Balance 20 ml Laboratory Data 24H LABS Laboratory Tests 2 02/02/19 17:56: Immature Granulocyte % (Auto) 0.3, White Blood Count 6.9, Red Blood Count 5.19, Hemoglobin 14.2, Hematocrit 44.4, Mean Corpuscular Volume 85.5, Mean Corpuscular Hemoglobin 27.4, Mean Corpuscular Hemoglobin Concent 32.0, Red Cell Distribution Width 13.8, Platelet Count 252, Neutrophils (%) (Auto) 71.7H, Lymphocytes (%) (Auto) 17.5L, Monocytes (%) (Auto) 8.5H, Eosinophils (%) (Auto) 1.3, Basophils (%) (Auto) 0.7, Neutrophils # (Auto) 5.0, Lymphocytes # (Auto) 1.2L, Monocytes # (Auto) 0.6, Eosinophils # (Auto) 0.1, Basophils # (Auto) 0.1, Nucleated Red Blood Cells % (auto) 0.0, Anion Gap 6L, Glomerular Filtration Rate > 60.0, Calcium Level 8.9, Aspartate Amino Transf (AST/SGOT) 33, Alanine Aminot ransferase (ALT/SGPT) 37, Alkaline Phosphatase 97, Total Bilirubin 0.9, Direct Bilirubin 0.2, Total Creatine Kinase 181, Creatine Kinase MB 4.0H, Creatine Kinase MB Relative Index 2.10, Troponin I < 0.02, Total Protein 8.1, Albumin 3.9, Albumin/Globulin Ratio 0.93L, Thyroid Stimulating Hormone (TSH) 1.460 02/02/19 23:30: Total Creatine Kinase 113, Creatine Kinase MB 3.0, Creatine Kinase MB Relative Index 2.39, Troponin I < 0.02 02/03/19 06:56: Nucleated Red Blood Cells % (auto) 0.0, Anion Gap 4L, Glomerular Filtration Rate > 60.0, Calcium Level 8.2L, Aspartate Amino Transf (AST/SGOT) 24, Alanine Aminotransferase (ALT/SGPT) 33, Alkaline Phosphatase 81, Total Bilirubin 0.8, Total Protein 7.1, Albumin 3.2, Albumin/Globulin Ratio 0.82L, Blood Urea Nitr ogen 18, Creatinine 1.11, Sodium Level 139, Potassium Level 3.9, Chloride Level 109H, Carbon Dioxide Level 26 CBC/BMP Laboratory Tests 02/02/19 17:56 Red Blood Count 5.19, Mean Corpuscular Volume 85.5, Mean Corpuscular Hemoglobin 27.4, Mean Corpuscular Hemoglobin Concent 32.0, Red Cell Distribution Width 13.8, Neutrophils (%) (Auto) 71.7 H, Lymphocytes (%) (Auto) 17.5 L, Monocytes (%) (Auto) 8.5 H, Eosinophils (%) (Auto) 1.3, Basophils (%) (Auto) 0.7, Neutrophils # (Auto) 5.0, Lymphocytes # (Auto) 1.2 L, Monocytes # (Auto) 0.6, Eosinophils # (Auto) 0.1, Basophils # (Auto) 0.1 02/03/19 06:56 Red Blood Count 4.52, Mean Corpuscular Volume 83.8, Mean Corpuscular Hemoglobin 27.4, Mean Corpuscular Hemoglobin Concent 32.7, Red Cell Distribution Width 1 4.5, Calcium Level 8.2 L, Aspartate Amino Transf (AST/SGOT) 24, Alanine Aminotransferase (ALT/SGPT) 33, Alkaline Phosphatase 81, Total Bilirubin 0.8, Total Protein 7.1, Albumin 3.2 BROCK STARKS February 03, 2019 12:14 pm Clement Thomason MD February 03, 2019 9:54 pm
--- NOTE | 2019-02-03 13:28 | ECGEPIP ---
Stationary ECG Study [facility] - ED Test Date: 2019-02-02 Pat Name: TONI SEPULVEDA Department: Room: - Gender: M Special Officer: loli : 1955 Requested By: Kale Beatty Order Number: [id number] Reading MD: Sharda Shen Measurements Intervals [place] Rate: 69 P: 188 VA: 216 QRS: -68 QRSD: 176 T: 87 QT: 464 QTc: 500 Interpretive Statements ELECTRONIC ATRIAL PACEMAKER ELECTRONIC VENTRICULAR PACEMAKER ABNORMAL RHYTHM ECG SIMILAR 10/18/17 Electronically Signed On 02-03-2019 13:28:10 EDT by Sharda Shen
[2019-02-03 14:00] VITALS: BP 137/73
[2019-02-03] MEDS: diazePAM 2 MG TAB PO PRN ×3 (18:19→22:36)
[2019-02-03 18:59] LABS: CPK CREATINE PHOSPHOKINASE 78 U/L (39-308); MB/CK RELATIVE INDEX 1.79 (< OR =4); TROPONIN I < 0.02 NG/ML (< 0.10)
[2019-02-03] MEDS: ATORVASTATIN 20 MG TAB PO SCH (20:15)
[2019-02-03] MEDS: LISINOPRIL 5 MG TAB PO SCH (20:15)
[2019-02-03] MEDS: ATENOLOL 25 MG TAB PO SCH (20:16)
[2019-02-03 22:00] VITALS: BP 176/87
[2019-02-04] MEDS: diazePAM 2 MG TAB PO PRN ×6 (01:44→23:41)
[2019-02-04] MEDS: KETOROLAC 30 MG/ML VIAL (J1885) IV PRN ×4 (02:42→23:42)
[2019-02-04 06:00] VITALS: BP 154/82
[2019-02-04] MEDS: AMIODARONE 200 MG TAB (PACERONE) PO SCH (08:46)
[2019-02-04] MEDS: MULTIVITAMINS/MINERALS THERAP 1 TAB PO SCH (08:46)
[2019-02-04] MEDS: ATENOLOL 25 MG TAB PO SCH ×2 (08:46→20:10)
[2019-02-04] MEDS: ASPIRIN 81 MG ENTERIC TAB PO SCH (08:46)
[2019-02-04] MEDS: APIXABAN 5 MG TAB (ELIQUIS) PO SCH ×2 (08:46→20:09)
[2019-02-04] MEDS: LIDOCAINE 5% (LIDODERM) PATCH TD SCH (08:46)
--- NOTE | 2019-02-04 12:00 | IPNPDOC ---
Subjective Date Seen The patient was seen on 02/04/19. Subjective Chief Complaint/HPI Patient with c/o muscle spams mid-upper back. He states he did not sleep well d/t muscle spasm. Currently, he states he feels the best he has since 3 am this morning. Constitutional: Denies: Chills, Fever Pulmonary: Denies: Dyspnea, Cough, Pleuritic Chest Pain Cardiovascular: Denies: Chest Pain, Palpitations, Orthopnea, Edema, Lt Headedness Gastrointestinal: Denies: Nausea, Vomiting, Abdominal Pain, Diarrhea, Constipation Musculoskeletal: Reports: Back Pain Neurological: Denies: Weakness, Numbness, Incoordination Psych: Reports: Mood Normal Objective Physical Examination General Exam: Positive: Alert, Cooperative, Mild Distress (back pain ) Eye Exam: Positive: EOMI Neck Exam: Positive: Supple; Negative: JVD Chest Exam: Positive: Clear to auscultation, Normal air movement, Other (tenderness upon palpation right mid thorasci region/trapz region. No spinous process tenderness); Negative: Rales, Rhonchi, Wheezing Heart Exam: Positive: Rate Normal, Regular Rhythm Abdomen Exam: Positive: Normal bowel sounds, Soft; Negative: Tenderness Extremity Exam: Negative: Edema Neuro Exam: Positive: Strength at 5/5 X4 ext, Sensation Intact Psych Exam: Positive: Mental status NL, Mood NL A-FIB/CHADSVASC A-FIB History Current/History of A-Fib/PAF?: Yes Current Oral Anticoagulant The: Yes Assessment /Plan Problems (1) Muscle spasm Status: Acute Problem Text: 02/04/19: Patient with continued c/o muscle spasms. He was given Valium and Toradol last evening. He is feeling better currently. His is reluctant to have him discharged until his pain has subsided or under better control. I will order PT 02/03/19: Patient was given Toradol, Valium and MEthocarbamol last evening for spasm which he states did not help much. I will add Tylenol prn and Flexeril prn spasms. CT scan negative CT Spine: IMPRESSION: Mild degenerative spondylosis. No acute findings. (2) Syncope Status: Resolved Response to Treatment: Stable Problem Text: 02/04/19: Patient's pacemaker was adjusted yesterday to 70 bpm. His light-headedness has resolved. He reports to be feeling much better 02/03/19: Symptoms appear to have resolved. Patient with pacemaker interrogation yesterday at cardiology. Syncope felt to be related to dehydration. Patient received IVF. He is with good oral intake CT Head: FINDINGS: Brain: Bilateral basal ganglia calcifications. Otherwise unremarkable. Ventricles: Normal. No ventriculomegaly. Bones/joints: Unremarkable. No acute fracture. Sinuses: Visualized sinuses are unremarkable. No fluid levels. Mastoid air cells: Visualized mastoid air cells are well aerated. No mastoid effusion. Soft tissues: Unremarkable. CTA: IMPRESSION: 1. There are no pulmonary emboli. 2. There is no aortic dissection or aneurysm. 3. There are no acute pulmonary parenchymal findings. Chest X-ray: Impression: Dual chamber pacemaker. Otherwise, negative PA chest (3) Orthostatic syncope Status: Acute Response to Treatment: Stable Problem Text: 02/03/19: Ortho stats unremarkable (4) Paroxysmal atrial fibrillation Status: Chronic Response to Treatment: Stable Problem Text: 02/04/19: Controlled. On Eliquis Plan/VTE VTE Prophylaxis Ordered?: Yes (Eliquis ) Plan Family Medicine Attending Note: I saw and examined Mr. Husain, discussed with Brock Starks DNP. Agree with her note as documented. He reported to me that he had a very bad night. Part of this was because she did not realize that the Valium I prescribed was on a when necessary basis, and therefore he needed to ask for. I did explain this to him, but he might of been in too much pain to properly p erceive it. He understands the situation now and his muscle spasms are much improved with several doses of IV Toradol and when necessary Valium. If he does well overnight, I anticipate discharging him home with a prescription for Aleve and diazepam. 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
[2019-02-04 14:00] VITALS: BP 150/76
[2019-02-04] MEDS: LISINOPRIL 5 MG TAB PO SCH (20:08)
[2019-02-04] MEDS: ATORVASTATIN 20 MG TAB PO SCH (20:09)
[2019-02-04] MEDS ORDERED: **NOTE PATIENT COMMENT** MISC XX SCH (21:00)
[2019-02-04 22:00] VITALS: BP 160/89
[2019-02-05] MEDS: diazePAM 2 MG TAB PO PRN ×2 (05:05→08:11)
[2019-02-05] MEDS: KETOROLAC 30 MG/ML VIAL (J1885) IV PRN (05:53)
[2019-02-05 06:00] VITALS: BP 137/90
[2019-02-05 06:34] LABS: HEMATOCRIT 39.2 % (42.0-52.0); HEMOGLOBIN 12.8 g/dl (13.5-17.5); MEAN CORPUSCULAR HEMOGLOBIN 28.1 pg (27.0-33.0); MEAN CORPUSCULAR HGB CONC 32.7 g/dl (32.0-36.5); MEAN CORPUSCULAR VOLUME 86.2 fl (80.0-96.0); PLATELET COUNT, AUTOMATED 216 10^3/uL (150-450); RED BLOOD COUNT 4.55 10^6/uL (4.30-6.10); WHITE BLOOD COUNT 4.8 10^3/uL (4.0-10.0)
[2019-02-05 06:51] LABS: BLOOD UREA NITROGEN 13 MG/DL (7-18); CALCIUM LEVEL 8.8 MG/DL (8.8-10.2); CARBON DIOXIDE LEVEL 26 MEQ/L (21-32); CHLORIDE LEVEL 110 MEQ/L (98-107); CREATININE FOR GFR 0.98 MG/DL (0.70-1.30); GLOMERULAR FILTRATION RATE > 60.0 (>49); GLUCOSE, FASTING 99 MG/DL (70-100); POTASSIUM SERUM 3.9 MEQ/L (3.5-5.1); SODIUM LEVEL 141 MEQ/L (136-145)
[2019-02-05] MEDS ORDERED: LIDO5TD TD (07:27)
[2019-02-05] MEDS ORDERED: DIAZ2TAB PO (07:27)
[2019-02-05] MEDS ORDERED: ATEN25TA PO (07:27)
[2019-02-05] MEDS ORDERED: NAPR250T4 PO (07:27)
[2019-02-05] MEDS: MULTIVITAMINS/MINERALS THERAP 1 TAB PO SCH (08:11)
[2019-02-05] MEDS: ASPIRIN 81 MG ENTERIC TAB PO SCH (08:11)
[2019-02-05] MEDS: APIXABAN 5 MG TAB (ELIQUIS) PO SCH (08:11)
[2019-02-05 08:12] VITALS: BP 137/90
[2019-02-05] MEDS: AMIODARONE 200 MG TAB (PACERONE) PO SCH (08:12)
[2019-02-05] MEDS: ATENOLOL 25 MG TAB PO SCH (08:12)
[2019-02-05] MEDS: LIDOCAINE 5% (LIDODERM) PATCH TD SCH (08:16)
--- NOTE | 2019-02-05 12:06 | DS.PDOC ---
Discharge Summary General Date of Admission February 02, 2019 at 21:13 Date of Discharge 02/05/19 Primary Care Physician: Richard Singh M.D. Attending Physician: Clement Thomason MD Specialist/Consultants Involve: Star Weaver Discharge Summary PROCEDURES PERFORMED DURING STAY: None ADMITTING DIAGNOSES: 1.Syncope 2. Muscle spasm 3. Orthostatic syncope COMPLICATIONS/CHIEF COMPLAINT: Orthostatc Syncope. 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 fib (on Eliquis) who presented to the emergency department after a syncopal episode. Patient reported being in his usual state of health as he was assisting a neighbor move a lawnmower. He states that after completing that task, he began to feel lightheaded and nauseous. Patient subsequently laid down with near complete resolution of his symptoms in a matter of minutes. After such time, the patient again stood up and began to walk toward his car to return home. It was at this time he again became dizzy/nauseated and believes he fell to the ground where he remained for a number of minutes. Once coming to, patient noted to have increasing back discomfort. He drove himself back home and only after sharing the aforementioned events with his family, was the patient persuaded to present to the emergency department. Upon presentation, patient complained of pain across his shoulder blades in the right side of his neck. 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 HOSPITAL COURSE: 1. Syncope: This was felt to be secondary to his pacemaker settings, medication and possible dehydration. Cardiology adjusted his pacemaker settings. They turned off a function of the pacer which allows his heart rate to fall below 70 while he's resting. Additionally they turned on another function which allows his pacemaker to adaptively increase his heart rate when he is more active. In addition, his carvedilol was discontinued and he was started on atenolol 25 mg po bid on the theory that the slight alpha activity of the carvedilol might make him more prone to orthostasis. Patient was taken a short walk with Dr. Weaver after these changes were made and had reported that the dizziness had resolved. Patient was also rehydrated. 2. Muscle spasm: Patient was treated with Toradol and Valium with improvement in his symptoms the evening before discharge. Methocarbamol and Flexeril were trialed initially with little relief of his symptoms. He worked with PT. He was discharged home on Aleve and 7 days course of Valium prn. 3. Orthostatic syncope: Ortho stats unremarkable DISCHARGE MEDICATIONS: Please see below. ALLERGIES: Please see below. PHYSICAL EXAMINATION ON DISCHARGE: VITAL SIGNS: Please see below. GENERAL: AOx3 HEENT: unremarkable NECK: soft, supple, no lymphadenopathy, no JVD or bruits CARDIOVASCULAR EXAMINATION: RRR RESPIRATORY EXAMINATION: CTA ABDOMINAL EXAMINATION: unremarkable EXTREMITIES:no edema NEUROLOGICAL EXAMINATION: intact LABORATORY DATA: Please see below. IMAGING: CT Head: FINDINGS: Brain: Bilateral basal ganglia calcifications. Otherwise unremarkable. Ventricles: Normal. No ventriculomegaly. Bones/joints: Unremarkable. No acute fracture. Sinuses: Visualized sinuses are unremarkable. No fluid levels. Mastoid air cells: Visualized mastoid air cells are well aerated. No mastoid effusion. Soft tissues: Unremarkable. CTA: IMPRESSION: 1. There are no pulmonary emboli. 2. There is no aortic dissection or aneurysm. 3. There are no acute pulmonary parenchymal findings. CT Spine: IMPRESSION: Mild degenerative spondylosis. No acute findings. Chest X-ray: Impression: Dual chamber pacemaker. Otherwise, negative PA chest ACTIVITY: As tolerated DISCHARGE PLAN: To home with follow-up with PCP and cardiology DISPOSITION: Home with PT DISCHARGE INSTRUCTIONS: 1. F/U with PCP as instructed 2. F/U with cardiology as instructed 3. PT outpatient Vital Signs/I&Os Vital Signs Date Time Temp Pulse Resp B/P (MAP) Pulse Ox O2 Delivery O2 Flow Rate FiO2 02/05/19 06:00 97.6 70 18 137/90 (106) 98 02/02/19 17:21 Room Air I&O- Last 24 Hours up to 6 AM 02/05/19 06:00 Intake Total 1555 ml Output Total 1975 ml Balance -420 ml Laboratory Data Labs 24H Laboratory Tests 2 02/05/19 05:57: Nucleated Red Blood Cells % (auto) 0.0, Anion Gap 5L, Glomerular Filtration Rate > 60.0, Blood Urea Nitrogen 13, Creatinine 0.98, Sodium Level 141, Potassium Level 3.9, Chloride Level 110H, Carbon Dioxide Level 26, Calcium Level 8.8 CBC/BMP Laboratory Tests 02/05/19 05:57 Red Blood Count 4.55, Mean Corpuscular Volume 86.2, Mean Corpuscular Hemoglobin 28.1, Mean Corpuscular Hemoglobin Concent 32.7, Red Cell Distribution Width 14.5, Calcium Level 8.8 Discharge Medications Scheduled Amiodarone HCl (Amiodarone HCl) 200 Mg Tablet, 200 MG PO DAILY, (Reported) Apixaban (Eliquis) 5 Mg Tab, 5 MG PO BID, (Reported) Aspirin (Aspirin EC) 81 Mg Tablet.dr, 81 MG PO DAILY, (Reported) Atenolol (Atenolol) 25 Mg Tablet, 25 MG PO BID Atorvastatin Calcium (Atorvastatin Calcium) 80 Mg Tab, 80 MG PO QHS, (Reported) Lidocaine (Lidocaine) 5% Adh..patch, 1 PATCH TD DAILY Lisinopril (Lisinopril) 5 Mg Tab, 5 MG PO QHS, (Reported) Multivitamins (Thera M Plus Tablet) 1 Each Tablet, 1 TAB PO DAILY, (Reported) Naproxen (Naproxen) 250 Mg Tablet, 1 TAB PO BID for pain Scheduled PRN Diazepam (Diazepam) 2 Mg Tablet, 2 MG PO Q6HP PRN for spasms Levocetirizine Dihydrochloride (Levocetirizine Dihydrochloride) 5 Mg Tablet, 5 MG PO DAILY PRN for ALLERGIES, (Reported) Nitroglycerin (Nitroglycerin) 4.9 Gm [place], 1 SPRAY PO NITRO PRN for CHEST PAIN, (Reported) Sildenafil Citrate (Viagra) 100 Mg Tab, 50 MG PO ASDIRECTED PRN for ERECTILE DYSFUNCTION, (Reported) Allergies Coded Allergies: strawberry (Verified Allergy, Severe, ANAPHYLAXIS, 02/02/19) bee venom protein (honey bee) (Verified Allergy, Unknown, 02/02/19) BROCK STARKS February 05, 2019 07:36
== END 2019-02-05 10:20 | disposition home or self-care (01) ==
LOC: M ED 17:21 → M ED INP 21:13 → M MSPAV 22:52
PROVIDERS: ADMIT Internal Medicine; ATTEND Family Medicine
DX: I95.1 Orthostatic hypotension (principal); M62.838 Other muscle spasm; E83.119 Hemochromatosis, unspecified; K76.0 Fatty (change of) liver, not elsewhere classified; E78.49 Other hyperlipidemia; I10 Essential (primary) hypertension; I25.10 Atherosclerotic heart disease of native coronary artery without angina pectoris; Z98.61 Coronary angioplasty status; Z95.0 Presence of cardiac pacemaker; I48.0 Paroxysmal atrial fibrillation; Z79.01 Long term (current) use of anticoagulants; Z79.82 Long term (current) use of aspirin; Z79.899 Other long term (current) drug therapy; Z91.030 Bee allergy status; Z91.018 Allergy to other foods
CPT/HCPCS: 36415; 70450; 71101; 71275; 72125; 80048; 80053; 80076; 82550; 82553; 84443; 84484; 85025; 85027; 93005; 93041; 94760; 96374; 96375; 96376; 97161; 97530; 99285; J1885; J3360; Q9967

== ENCOUNTER → 2019-02-26 | Outpatient (REF) | payer OTHER ==
[~2019-02-26] MED LIST changes: +AMIO200T PO; +ASPI-161 PO; +ATEN25TA PO; +DIAZ2TAB PO; +LEVOTAB10 PO; +LIDO5TD TD; +NAPR250T4 PO; +NITR0.1S PO; +VITMTA PO
== END ==
LOC: M LABDRAWP 10:56
PROVIDERS: ATTEND Internal Medicine Cardiovascular Disease
DX: I48.0 Paroxysmal atrial fibrillation (principal)

== ENCOUNTER → 2019-02-26 | Outpatient (REF) | payer OTHER ==
[2019-02-26 11:21] LABS: BASO # 0.1 10^3/uL (0.0-0.2); BASO % 0.8 % (0.0-1.0); EOS # 0.1 10^3/uL (0.0-0.50); EOS % 1.4 % (0.0-3.0); HEMATOCRIT 42.5 % (42.0-52.0); HEMOGLOBIN 13.5 g/dl (13.5-17.5); LYMPH # 1.5 10^3/uL (1.5-4.5); LYMPH % 22.6 % (24.0-44.0); MEAN CORPUSCULAR HEMOGLOBIN 27.2 pg (27.0-33.0); MEAN CORPUSCULAR HGB CONC 31.8 g/dl (32.0-36.5); MEAN CORPUSCULAR VOLUME 85.7 fl (80.0-96.0); MONO # 0.7 10^3/uL (0.0-0.8); MONO % 11.5 % (0.0-5.0); NEUTROPHILS # 4.1 10^3/uL (1.8-7.7); NEUTROPHILS % 63.4 % (36.0-66.0); PLATELET COUNT, AUTOMATED 265 10^3/uL (150-450); RED BLOOD COUNT 4.96 10^6/uL (4.30-6.10); WHITE BLOOD COUNT 6.4 10^3/uL (4.0-10.0)
[2019-02-26 11:40] LABS: HEMOGLOBIN A1c 6.3 %
[2019-02-26 19:48] LABS: ALBUMIN 3.9 GM/DL (3.2-5.2); ALT/SGPT 34 U/L (12-78); BILIRUBIN,TOTAL 1.1 MG/DL (0.2-1.0); BLOOD UREA NITROGEN 16 MG/DL (7-18); CALCIUM LEVEL 8.9 MG/DL (8.8-10.2); CARBON DIOXIDE LEVEL 27 MEQ/L (21-32); CHLORIDE LEVEL 105 MEQ/L (98-107); CHOLESTEROL LEVEL 127 MG/DL (<200); CHOLESTEROL RISK RATIO 2.442 (<5); CPK CREATINE PHOSPHOKINASE 128 U/L (39-308); CREATININE FOR GFR 1.06 MG/DL (0.70-1.30); GLOMERULAR FILTRATION RATE > 60.0 (>49); GLUCOSE, FASTING 92 MG/DL (70-100); HDL CHOLESTEROL 52 MG/DL (>40); LDL CHOLESTEROL 55 MG/DL (<100); NON-HDL-C 75 MG/DL; POTASSIUM SERUM 4.5 MEQ/L (3.5-5.1); SODIUM LEVEL 140 MEQ/L (136-145); TOTAL PROTEIN 7.7 GM/DL (6.4-8.2); TRIGLYCERIDES LEVEL 101 MG/DL (<150)
== END ==
LOC: M SFHCPLAZ 07:39
PROVIDERS: ATTEND Family Medicine
DX: E83.119 Hemochromatosis, unspecified (principal); E78.5 Hyperlipidemia, unspecified; R73.01 Impaired fasting glucose; Z12.5 Encounter for screening for malignant neoplasm of prostate
CPT/HCPCS: 36415; 80053; 80061; 82550; 83036; 83525; 85025; 85046; G0103

== ENCOUNTER → 2019-03-04 | Outpatient (CLI) | payer BC, OTHER ==
--- NOTE | 2019-03-04 15:18 | REP ---
THORACIC SPINE, THREE VIEWS: HISTORY: Spondylosis. COMPARISON: 10/19/2013 There is no acute fracture or subluxation. There is loss of height of several mid and lower thoracic intervertebral discs. Anterior osteophytes are present throughout the thoracic spine. IMPRESSION: Degenerative change as described above. Electronically Signed by Kishan Cook MD 03/04/2019 03:19 P
== END ==
LOC: M RAD 10:35
PROVIDERS: ATTEND Family Medicine
DX: M47.814 Spondylosis without myelopathy or radiculopathy, thoracic region (principal)

== ENCOUNTER → 2019-07-28 | Outpatient (REF) | payer OTHER ==
[2019-07-28 11:06] LABS: APPEARANCE, URINE CLEAR (CLEAR); BACTERIA, URINE AUTO NEGATIVE (NEGATIVE); BILIRUBIN, URINE AUTO NEGATIVE (NEGATIVE); BLOOD, URINE BLOOD NEGATIVE (NEGATIVE); COLOR, URINE YELLOW (YELLOW); GLUCOSE, URINE (UA) AUTO NEGATIVE (NEGATIVE); KETONE, URINE AUTO NEGATIVE (NEGATIVE); LEUKOCYTE ESTERASE, URINE AUTO NEGATIVE (NEGATIVE); MUCUS, URINE SMALL (NEGATIVE); NITRITE, URINE AUTO NEGATIVE (NEGATIVE); PROTEIN, URINE AUTO NEGATIVE (NEGATIVE); RBC, URINE AUTO 1 /HPF (0-3); SPECIFIC GRAVITY URINE AUTO 1.008 (1.002-1.035); SQUAMOUS EPITHELIAL CELL UR AU 0 /HPF (0-6); UROBILINOGEN, URINE AUTO 0.2 mg/dL (0.0-2.0); WBC, URINE AUTO 0 /HPF (0-3)
[2019-07-28 11:12] LABS: INR 1.21
[2019-07-28 11:13] LABS: PARTIAL THROMBOPLASTIN TIME 29.4 SECONDS (25.0-38.4)
[2019-07-28 11:20] LABS: HEMOGLOBIN A1c 6.9 %
[2019-07-28 11:46] LABS: CREATININE, URINE 84.5 MG/DL
== END ==
LOC: M SFHCPLAZ 08:12
PROVIDERS: ATTEND Family Medicine
DX: E83.119 Hemochromatosis, unspecified (principal); R73.01 Impaired fasting glucose

== ENCOUNTER → 2019-07-28 | Outpatient (REF) | payer OTHER ==
[2019-07-28 11:02] LABS: HEMATOCRIT 40.6 % (42.0-52.0); HEMOGLOBIN 12.3 g/dl (13.5-17.5); MEAN CORPUSCULAR HEMOGLOBIN 24.4 pg (27.0-33.0); MEAN CORPUSCULAR HGB CONC 30.3 g/dl (32.0-36.5); MEAN CORPUSCULAR VOLUME 80.6 fl (80.0-96.0); PLATELET COUNT, AUTOMATED 271 10^3/uL (150-450); RED BLOOD COUNT 5.04 10^6/uL (4.30-6.10); WHITE BLOOD COUNT 4.5 10^3/uL (4.0-10.0)
[2019-07-28 11:40] LABS: ALBUMIN 3.8 GM/DL (3.2-5.2); ALT/SGPT 42 U/L (12-78); BILIRUBIN,TOTAL 0.9 MG/DL (0.2-1.0); BLOOD UREA NITROGEN 10 MG/DL (7-18); CARBON DIOXIDE LEVEL 25 MEQ/L (21-32); CHLORIDE LEVEL 108 MEQ/L (98-107); GLOMERULAR FILTRATION RATE > 60.0 (>49); GLUCOSE, FASTING 126 MG/DL (70-100); POTASSIUM SERUM 4.6 MEQ/L (3.5-5.1); SODIUM LEVEL 139 MEQ/L (136-145); THYROID STIMULATING HORMONE 0.998 uIU/ML (0.358-3.740); TOTAL PROTEIN 7.3 GM/DL (6.4-8.2)
== END ==
LOC: M LABDRAWP 08:20
PROVIDERS: ATTEND Internal Medicine Cardiovascular Disease
DX: I48.0 Paroxysmal atrial fibrillation (principal)

== ENCOUNTER → 2020-05-31 | Outpatient (CLI) | payer MEDICARE, OTHER ==
[~2020-05-31] MED LIST changes: -AMIO200T PO; +AMIO200T3 PO; -ASPI81TA85 PO; +ASPI81TA86 PO
[2020-05-31 18:27] LABS: BASO # 0.1 10^3/uL (0.0-0.2); BASO % 0.9 % (0.0-1.0); EOS # 0.1 10^3/uL (0.0-0.5); HEMATOCRIT 43.3 % (42.0-52.0); HEMOGLOBIN 14.1 g/dl (13.5-17.5); LYMPH # 1.7 10^3/uL (1.5-5.0); LYMPH % 30.6 % (24.0-44.0); MEAN CORPUSCULAR HEMOGLOBIN 27.6 pg (27.0-33.0); MEAN CORPUSCULAR HGB CONC 32.6 g/dl (32.0-36.5); MEAN CORPUSCULAR VOLUME 84.9 fl (80.0-96.0); MONO # 0.6 10^3/uL (0.0-0.8); MONO % 11.7 % (0.0-5.0); NEUTROPHILS % 54.6 % (36.0-66.0); PLATELET COUNT, AUTOMATED 242 10^3/uL (150-450); WHITE BLOOD COUNT 5.4 10^3/uL (4.0-10.0)
[2020-05-31 18:43] LABS: C REACTIVE PROTEIN QUANTITATIV < 0.30 MG/DL (0.00-0.30); CHOLESTEROL LEVEL 122 MG/DL (<200); CPK CREATINE PHOSPHOKINASE 150 U/L (39-308); FERRITIN 23 NG/ML (26-388); FREE T4 0.96 NG/DL (0.76-1.46); HDL CHOLESTEROL 50 MG/DL (>40); IRON (FE) 96 UG/DL (65-175); LDL CHOLESTEROL 55 MG/DL (<100); NON-HDL-C 72 MG/DL; PERCENT SATURATION 32.2 % (19.7-50.0); TOTAL IRON BINDING CAPACITY 298 UG/DL (250-450); TRIGLYCERIDES LEVEL 84 MG/DL (<150)
[2020-05-31 18:50] LABS: HEMOGLOBIN A1c 6.6 %
== END ==
LOC: M WUC 14:05
PROVIDERS: ATTEND Family Medicine
DX: D50.9 Iron deficiency anemia, unspecified (principal); R73.01 Impaired fasting glucose; Z12.5 Encounter for screening for malignant neoplasm of prostate; Z79.899 Other long term (current) drug therapy
CPT/HCPCS: 36415; 80061; 82550; 82728; 83036; 83525; 83550; 84439; 84443; 85025; 86140; G0103

== ENCOUNTER → 2020-08-29 | Outpatient (CLI) | payer SELFPAY | LOC: M LABSMTC 14:01 | PROVIDERS: ATTEND Pediatrics | DX: Z11.59 Encounter for screening for other viral diseases (principal) ==

== ENCOUNTER → 2020-11-22 | Outpatient (CLI) | payer MEDICARE, OTHER ==
[~2020-11-22] MED LIST changes: -LISI-542 PO; +LISI-898 PO; +NAPR-849 PO; -NAPR250T4 PO
[2020-11-22 16:35] LABS: BLOOD UREA NITROGEN 18 MG/DL (7-18); CALCIUM LEVEL 8.6 MG/DL (8.8-10.2); CARBON DIOXIDE LEVEL 26 MEQ/L (21-32); CHLORIDE LEVEL 111 MEQ/L (98-107); CREATININE FOR GFR 0.98 MG/DL (0.70-1.30); GLOMERULAR FILTRATION RATE > 60.0 (>49); GLUCOSE, FASTING 102 MG/DL (70-100); POTASSIUM SERUM 5.3 MEQ/L (3.5-5.1); SODIUM LEVEL 139 MEQ/L (136-145)
== END ==
LOC: M WUC 12:18
PROVIDERS: ATTEND Physician Assistant
DX: I11.9 Hypertensive heart disease without heart failure (principal)

== ENCOUNTER → 2021-06-27 | Outpatient (CLI) | payer MEDICARE, OTHER ==
[2021-06-27 15:58] LABS: BASO % 0.8 % (0.0-1.0); EOS # 0.1 10^3/uL (0.0-0.5); EOS % 1.6 % (0.0-3.0); HEMATOCRIT 47.5 % (42.0-52.0); HEMOGLOBIN 16.1 g/dl (13.5-17.5); LYMPH # 1.5 10^3/uL (1.5-5.0); LYMPH % 29.3 % (24.0-44.0); MEAN CORPUSCULAR HEMOGLOBIN 31.9 pg (27.0-33.0); MEAN CORPUSCULAR HGB CONC 33.9 g/dl (32.0-36.5); MEAN CORPUSCULAR VOLUME 94.2 fl (80.0-96.0); MONO # 0.5 10^3/uL (0.0-0.8); MONO % 10.3 % (2.0-8.0); NEUTROPHILS % 57.8 % (36.0-66.0); PLATELET COUNT, AUTOMATED 238 10^3/uL (150-450); RED BLOOD COUNT 5.04 10^6/uL (4.30-6.10); WHITE BLOOD COUNT 5.2 10^3/uL (4.0-10.0)
[2021-06-27 16:33] LABS: MALB URINE SIEMENS 22.5 MG/L; MAU/CREAT RATIO 12.5 MCG/MG (0.0-30.0)
[2021-06-27 17:17] LABS: ALBUMIN 3.7 GM/DL (3.2-5.2); ALT/SGPT 92 U/L (12-78); BILIRUBIN,TOTAL 0.8 MG/DL (0.2-1.0); BLOOD UREA NITROGEN 13 MG/DL (7-18); CARBON DIOXIDE LEVEL 26 MEQ/L (21-32); CHLORIDE LEVEL 109 MEQ/L (98-107); CREATININE FOR GFR 0.92 MG/DL (0.70-1.30); GLOMERULAR FILTRATION RATE > 60.0 (>49); GLUCOSE, FASTING 105 MG/DL (70-100); MAGNESIUM LEVEL 2.3 MG/DL (1.8-2.4); POTASSIUM SERUM 4.9 MEQ/L (3.5-5.1); SODIUM LEVEL 139 MEQ/L (136-145); TOTAL PROTEIN 7.6 GM/DL (6.4-8.2)
[2021-06-27 18:41] LABS: HEMOGLOBIN A1c 5.8 %
[2021-06-27 18:44] LABS: NT-PRO BNP 292 PG/ML (<125); VITAMIN B12 LEVEL 895 PG/ML (247-911)
== END ==
LOC: M WUC 13:07
PROVIDERS: ATTEND Family Medicine
DX: D50.9 Iron deficiency anemia, unspecified (principal); I10 Essential (primary) hypertension; E83.110 Hereditary hemochromatosis; R73.01 Impaired fasting glucose

== ENCOUNTER → 2021-11-09 | Outpatient (CLI) | payer MEDICARE, OTHER, BC ==
[~2021-11-09] MED LIST changes: -AMIO200T3 PO; +AMIO200T49 PO; -LISI-898 PO; +LISI5TAB11 PO; +METF-838 PO
== END ==
LOC: M LABSMTC 09:23
PROVIDERS: ATTEND Anesthesiology
DX: Z01.818 Encounter for other preprocedural examination (principal); Z11.52 Encounter for screening for COVID-19

== ENCOUNTER 2021-11-14 10:07 | Day surgery (SDC) | payer MEDICARE, BC, OTHER ==
[~2021-11-14] VITALS: Ht 177.8 cm; Wt 100.6 kg
[~2021-11-14 10:07] MED LIST changes: +NS 1,000 ML IV ONE
[2021-11-14] MEDS ORDERED: LIDOCAINE 2% 100MG/5ML SDV (FOR ANES.) As Ordered ONE (11:31)
[2021-11-14] MEDS ORDERED: propofoL 200 MG/20 ML VIAL As Ordered ONE (11:32)
[2021-11-14 12:15] VITALS: BP 141/77
== END 2021-11-14 12:25 | disposition home or self-care (01) ==
LOC: M OPP 10:07
PROVIDERS: ATTEND Internal Medicine Gastroenterology
DX: Z12.11 Encounter for screening for malignant neoplasm of colon (principal); K64.0 First degree hemorrhoids; Z79.82 Long term (current) use of aspirin; Z79.84 Long term (current) use of oral hypoglycemic drugs; Z79.899 Other long term (current) drug therapy; Z91.018 Allergy to other foods; Z91.030 Bee allergy status; Z95.0 Presence of cardiac pacemaker

== ENCOUNTER → 2021-12-13 | Outpatient (CLI) | payer MEDICARE, BC, OTHER ==
[~2021-12-13] MED LIST changes: -NS 1,000 ML IV ONE
[2021-12-13 14:26] LABS: BASO # 0.1 10^3/uL (0.0-0.2); EOS # 0.1 10^3/uL (0.0-0.5); EOS % 2.2 % (0.0-3.0); HEMATOCRIT 46.8 % (42.0-52.0); HEMOGLOBIN 15.8 g/dl (13.5-17.5); LYMPH # 1.5 10^3/uL (1.5-5.0); LYMPH % 30.1 % (24.0-44.0); MEAN CORPUSCULAR HEMOGLOBIN 31.7 pg (27.0-33.0); MEAN CORPUSCULAR HGB CONC 33.8 g/dl (32.0-36.5); MEAN CORPUSCULAR VOLUME 93.8 fl (80.0-96.0); MONO # 0.7 10^3/uL (0.0-0.8); MONO % 13.3 % (2.0-8.0); NEUTROPHILS # 2.7 10^3/uL (1.5-8.5); NEUTROPHILS % 53.2 % (36.0-66.0); PLATELET COUNT, AUTOMATED 221 10^3/uL (150-450); RED BLOOD COUNT 4.99 10^6/uL (4.30-6.10); WHITE BLOOD COUNT 5.1 10^3/uL (4.0-10.0)
[2021-12-13 14:45] LABS: INR 0.99; PARTIAL THROMBOPLASTIN TIME 29.3 SECONDS (25.9-37.0); PROTHROMBIN TIME 13.5 SECONDS (12.7-14.5)
[2021-12-13 14:58] LABS: ALBUMIN 3.8 GM/DL (3.2-5.2); ALT/SGPT 86 U/L (12-78); BILIRUBIN,TOTAL 0.5 MG/DL (0.2-1.0); BLOOD UREA NITROGEN 24 MG/DL (7-18); CALCIUM LEVEL 9.1 MG/DL (8.8-10.2); CARBON DIOXIDE LEVEL 29 MEQ/L (21-32); CHLORIDE LEVEL 112 MEQ/L (98-107); CHOLESTEROL LEVEL 113 MG/DL (<200); CHOLESTEROL RISK RATIO 2.215 (<5); CREATININE FOR GFR 1.03 MG/DL (0.70-1.30); FERRITIN 64 NG/ML (26-388); GLOMERULAR FILTRATION RATE > 60.0 (>49); GLUCOSE, FASTING 113 MG/DL (70-100); HDL CHOLESTEROL 51 MG/DL (>40); IRON (FE) 99 UG/DL (65-175); LDL CHOLESTEROL 49 MG/DL (<100); NON-HDL-C 62 MG/DL; PERCENT SATURATION 38.2 % (19.7-50.0); POTASSIUM SERUM 4.8 MEQ/L (3.5-5.1); SODIUM LEVEL 143 MEQ/L (136-145); TOTAL IRON BINDING CAPACITY 259 UG/DL (250-450); TOTAL PROTEIN 7.2 GM/DL (6.4-8.2); TRIGLYCERIDES LEVEL 66 MG/DL (<150)
== END ==
LOC: M WUC 11:41
PROVIDERS: ATTEND Family Medicine
DX: D75.89 Other specified diseases of blood and blood-forming organs (principal); R73.01 Impaired fasting glucose; E83.119 Hemochromatosis, unspecified; Z12.5 Encounter for screening for malignant neoplasm of prostate; E78.5 Hyperlipidemia, unspecified
CPT/HCPCS: 36415; 80053; 80061; 82105; 82728; 83036; 83525; 83550; 84165; 85025; 85610; 85730; 86335; G0103

== ENCOUNTER → 2022-06-17 | Outpatient (CLI) | payer MEDICARE, OTHER, BC ==
[2022-06-17 15:31] LABS: APPEARANCE, URINE MANUAL CLEAR (CLEAR)
[2022-06-17 15:32] LABS: BILIRUBIN, URINE MANUAL NEGATIVE (NEGATIVE); BLOOD URINE MANUAL NEGATIVE (NEGATIVE); COLOR, URINE MANUAL YELLOW (YELLOW); GLUCOSE, URINE (UA) MANUAL NEGATIVE (NEGATIVE); KETONE, URINE MANUAL NEGATIVE (NEGATIVE); LEUKOCYTE ESTERASE, URINE MAN NEGATIVE (NEGATIVE); NITRITE, URINE MANUAL NEGATIVE (NEGATIVE); PROTEIN, URINE MANUAL NEGATIVE (NEGATIVE); UROBILINOGEN, URINE MANUAL NORMAL (NORMAL)
[2022-06-17 15:34] LABS: BASO # 0.1 10^3/uL (0.0-0.2); EOS # 0.1 10^3/uL (0.0-0.5); EOS % 2.1 % (0.0-3.0); HEMATOCRIT 46.5 % (42.0-52.0); HEMOGLOBIN 16.1 g/dl (13.5-17.5); LYMPH # 1.8 10^3/uL (1.5-5.0); LYMPH % 31.2 % (24.0-44.0); MEAN CORPUSCULAR HEMOGLOBIN 32.4 pg (27.0-33.0); MEAN CORPUSCULAR HGB CONC 34.6 g/dl (32.0-36.5); MEAN CORPUSCULAR VOLUME 93.6 fl (80.0-96.0); MONO # 0.6 10^3/uL (0.0-0.8); MONO % 10.4 % (2.0-8.0); NEUTROPHILS # 3.2 10^3/uL (1.5-8.5); NEUTROPHILS % 54.8 % (36.0-66.0); PLATELET COUNT, AUTOMATED 215 10^3/uL (150-450); RED BLOOD COUNT 4.97 10^6/uL (4.30-6.10); WHITE BLOOD COUNT 5.8 10^3/uL (4.0-10.0)
[2022-06-17 16:10] LABS: MALB URINE SIEMENS 9.2 MG/L
[2022-06-17 16:10] LABS: ALBUMIN 3.7 GM/DL (3.2-5.2); ALT/SGPT 99 U/L (12-78); BILIRUBIN,TOTAL 0.7 MG/DL (0.2-1.0); BLOOD UREA NITROGEN 12 MG/DL (7-18); CALCIUM LEVEL 8.8 MG/DL (8.8-10.2); CARBON DIOXIDE LEVEL 26 MEQ/L (21-32); CHLORIDE LEVEL 106 MEQ/L (98-107); GLOMERULAR FILTRATION RATE > 60.0 (>49); GLUCOSE, FASTING 97 MG/DL (70-100); NT-PRO BNP 258 PG/ML (<125); POTASSIUM SERUM 4.5 MEQ/L (3.5-5.1); SODIUM LEVEL 138 MEQ/L (136-145); TOTAL PROTEIN 7.5 GM/DL (6.4-8.2)
[2022-06-17 16:52] LABS: VITAMIN B12 LEVEL 723 PG/ML (247-911)
== END ==
LOC: M LAB 14:32
PROVIDERS: ATTEND Family Medicine
DX: I10 Essential (primary) hypertension (principal); R73.01 Impaired fasting glucose; E83.119 Hemochromatosis, unspecified; D75.89 Other specified diseases of blood and blood-forming organs

== ENCOUNTER → 2022-11-27 | Outpatient (CLI) | payer MEDICARE, OTHER, BC ==
[2022-11-27 15:15] LABS: BASO # 0.1 10^3/uL (0.0-0.2); BASO % 0.8 % (0.0-1.0); EOS # 0.2 10^3/uL (0.0-0.5); EOS % 2.4 % (0.0-3.0); HEMATOCRIT 43.6 % (42.0-52.0); HEMOGLOBIN 14.8 g/dl (13.5-17.5); LYMPH # 2.1 10^3/uL (1.5-5.0); LYMPH % 31.2 % (24.0-44.0); MEAN CORPUSCULAR HEMOGLOBIN 32.1 pg (27.0-33.0); MEAN CORPUSCULAR HGB CONC 33.9 g/dl (32.0-36.5); MEAN CORPUSCULAR VOLUME 94.6 fl (80.0-96.0); MONO # 0.7 10^3/uL (0.0-0.8); MONO % 10.1 % (2.0-8.0); NEUTROPHILS # 3.7 10^3/uL (1.5-8.5); NEUTROPHILS % 55.2 % (36.0-66.0); PLATELET COUNT, AUTOMATED 216 10^3/uL (150-450); RED BLOOD COUNT 4.61 10^6/uL (4.30-6.10); WHITE BLOOD COUNT 6.6 10^3/uL (4.0-10.0)
[2022-11-27 15:45] LABS: PERCENT SATURATION 71.2 % (19.7-50.0)
[2022-11-27 15:46] LABS: CHOLESTEROL RISK RATIO 2.38 (<5); HDL CHOLESTEROL 44.5 MG/DL (>40); LDL CHOLESTEROL 45.3 MG/DL (<100); NON-HDL-C 61.5 MG/DL
[2022-11-27 15:47] LABS: FERRITIN 51.5 NG/ML (10.5-307.3)
[2022-11-27 16:07] LABS: HEMOGLOBIN A1c 6.1 % (4.0-6.0)
== END ==
LOC: M LAB 14:30
PROVIDERS: ATTEND Family Medicine
DX: E83.119 Hemochromatosis, unspecified (principal); E78.00 Pure hypercholesterolemia, unspecified; Z12.5 Encounter for screening for malignant neoplasm of prostate
CPT/HCPCS: 36415; 80061; 82172; 82728; 83036; 83525; 83550; 85025; G0103

== ENCOUNTER → 2023-06-04 | Outpatient (CLI) | payer MEDICARE, BC, OTHER ==
[2023-06-04 14:17] LABS: BASO # 0.1 10^3/uL (0.0-0.2); BASO % 0.8 % (0.0-1.0); EOS # 0.1 10^3/uL (0.0-0.5); EOS % 1.6 % (0.0-3.0); HEMATOCRIT 43.6 % (42.0-52.0); HEMOGLOBIN 14.5 g/dl (13.5-17.5); LYMPH % 32.6 % (24.0-44.0); MEAN CORPUSCULAR HEMOGLOBIN 30.3 pg (27.0-33.0); MEAN CORPUSCULAR HGB CONC 33.3 g/dl (32.0-36.5); MONO # 0.6 10^3/uL (0.0-0.8); NEUTROPHILS # 3.4 10^3/uL (1.5-8.5); NEUTROPHILS % 55.7 % (36.0-66.0); PLATELET COUNT, AUTOMATED 233 10^3/uL (150-450); RED BLOOD COUNT 4.79 10^6/uL (4.30-6.10); WHITE BLOOD COUNT 6.1 10^3/uL (4.0-10.0)
[2023-06-04 14:33] LABS: INR 1.2; PROTHROMBIN TIME 14.9 SECONDS (12.5-14.5)
[2023-06-04 14:34] LABS: PARTIAL THROMBOPLASTIN TIME 27.2 SECONDS (24.8-34.2)
[2023-06-04 14:42] LABS: ALBUMIN 3.5 G/DL (3.2-5.2); ALKALINE PHOSPHATASE 92 U/L (46-116); ALT/SGPT 84 U/L (7.0-40); AST/SGOT 43 U/L (<34); BLOOD UREA NITROGEN 13 MG/DL (9-23); CALCIUM LEVEL 8.8 MG/DL (8.3-10.6); CARBON DIOXIDE LEVEL 26 MMOL/L (20-31); CHLORIDE LEVEL 107 MMOL/L (98-107); CREATININE FOR GFR 0.85 MG/DL (0.70-1.30); GLOMERULAR FILTRATION RATE > 60.0 (>49); GLUCOSE, FASTING 98 MG/DL (74-106); IRON (FE) 102 UG/DL (65-175); MAGNESIUM LEVEL 2.1 MG/DL (1.8-2.4); PERCENT SATURATION 38.8 % (19.7-50.0); POTASSIUM SERUM 4.7 MMOL/L (3.5-5.1); SODIUM LEVEL 141 MMOL/L (136-145); TOTAL IRON BINDING CAPACITY 263 UG/DL (250-425); TOTAL PROTEIN 6.8 G/DL (5.7-8.2)
[2023-06-04 14:44] LABS: FERRITIN 38.9 NG/ML (10.5-307.3)
== END ==
LOC: M LAB 13:09
PROVIDERS: ATTEND Family Medicine
DX: I10 Essential (primary) hypertension (principal); Z79.01 Long term (current) use of anticoagulants; D50.9 Iron deficiency anemia, unspecified

== ENCOUNTER → 2023-06-12 | Outpatient (REF) | payer MEDICARE, OTHER | LOC: M SFHCPLAZ 11:47 | PROVIDERS: ATTEND Family Medicine | DX: R73.01 Impaired fasting glucose (principal); E78.5 Hyperlipidemia, unspecified; Z12.5 Encounter for screening for malignant neoplasm of prostate; D75.89 Other specified diseases of blood and blood-forming organs ==

== ENCOUNTER → 2023-12-23 | Outpatient (CLI) | payer MEDICARE, OTHER ==
[~2023-12-23] MED LIST changes: -ASPI-161 PO; +ASPI-615 PO
[2023-12-23 11:21] LABS: BASO # 0.1 10^3/uL (0.0-0.2); BASO % 1.2 % (0.0-1.0); EOS # 0.1 10^3/uL (0.0-0.5); EOS % 2.1 % (0.0-3.0); HEMATOCRIT 46.8 % (42.0-52.0); HEMOGLOBIN 15.6 g/dl (13.5-17.5); LYMPH # 1.4 10^3/uL (1.5-5.0); LYMPH % 33.1 % (24.0-44.0); MEAN CORPUSCULAR HGB CONC 33.3 g/dl (32.0-36.5); MONO # 0.6 10^3/uL (0.0-0.8); MONO % 14.7 % (2.0-8.0); NEUTROPHILS # 2.1 10^3/uL (1.5-8.5); NEUTROPHILS % 48.7 % (36.0-66.0); PLATELET COUNT, AUTOMATED 224 10^3/uL (150-450); RED BLOOD COUNT 5.03 10^6/uL (4.30-6.10); WHITE BLOOD COUNT 4.2 10^3/uL (4.0-10.0)
[2023-12-23 11:41] LABS: HEMOGLOBIN A1c 6.4 % (4.0-6.0)
[2023-12-23 11:53] LABS: CHOLESTEROL RISK RATIO 2.68 (<5); HDL CHOLESTEROL 41.7 MG/DL (>40); LDL CHOLESTEROL 51.1 MG/DL (<100); NON-HDL-C 70.3 MG/DL
[2023-12-23 11:54] LABS: MAU/CREAT RATIO 6.8 MCG/MG (0.0-30.0); PSA SCREENING 0.28 NG/ML (< 4.00)
[2023-12-23 11:58] LABS: FREE T4 1.16 NG/DL (0.89-1.76); THYROID STIMULATING HORMONE 1.291 uIU/ML (0.55-4.78)
== END ==
LOC: M PLALAB 08:24
PROVIDERS: ATTEND Family Medicine
DX: R73.01 Impaired fasting glucose (principal); Z12.5 Encounter for screening for malignant neoplasm of prostate; E78.00 Pure hypercholesterolemia, unspecified
CPT/HCPCS: 36415; 80061; 82043; 83036; 83525; 84439; 84443; 85025; G0103

== ENCOUNTER → 2024-01-01 | Outpatient (REF) | payer MEDICARE, BC | LOC: M SFHCPLAZ 09:03 | PROVIDERS: ATTEND Family Medicine | DX: R73.01 Impaired fasting glucose (principal); D75.89 Other specified diseases of blood and blood-forming organs; K74.00 Hepatic fibrosis, unspecified; D50.9 Iron deficiency anemia, unspecified ==

== ENCOUNTER → 2024-01-26 | Outpatient (CLI) | payer MEDICARE, BC | LOC: M RAD 07:53 | PROVIDERS: ATTEND Family Medicine | DX: K74.00 Hepatic fibrosis, unspecified (principal) ==

== ENCOUNTER → 2024-05-26 | Outpatient (CLI) | payer MEDICARE, BC ==
[2024-05-26 17:00] LABS: BASO % 0.6 % (0.0-1.0); EOS # 0.1 10^3/uL (0.0-0.5); EOS % 1.3 % (0.0-3.0); HEMATOCRIT 45.3 % (42.0-52.0); HEMOGLOBIN 15.7 g/dl (13.5-17.5); LYMPH # 1.7 10^3/uL (1.5-5.0); LYMPH % 24.9 % (24.0-44.0); MEAN CORPUSCULAR HEMOGLOBIN 32.5 pg (27.0-33.0); MEAN CORPUSCULAR HGB CONC 34.7 g/dl (32.0-36.5); MEAN CORPUSCULAR VOLUME 93.8 fl (80.0-96.0); MONO # 0.7 10^3/uL (0.0-0.8); MONO % 10.5 % (2.0-8.0); NEUTROPHILS # 4.3 10^3/uL (1.5-8.5); NEUTROPHILS % 62.3 % (36.0-66.0); PLATELET COUNT, AUTOMATED 260 10^3/uL (150-450); RED BLOOD COUNT 4.83 10^6/uL (4.30-6.10); WHITE BLOOD COUNT 6.8 10^3/uL (4.0-10.0)
[2024-05-26 17:13] LABS: ALBUMIN 3.7 G/DL (3.2-5.2); ALKALINE PHOSPHATASE 86 U/L (46-116); ALT/SGPT 112 U/L (7.0-40); AST/SGOT 74 U/L (<34); BILIRUBIN,TOTAL 1.1 MG/DL (0.3-1.2); BLOOD UREA NITROGEN 15 MG/DL (9-23); CALCIUM LEVEL 9.5 MG/DL (8.3-10.6); CARBON DIOXIDE LEVEL 29 MMOL/L (20-31); CHLORIDE LEVEL 107 MMOL/L (98-107); GLOMERULAR FILTRATION RATE > 60.0 (>49); GLUCOSE, FASTING 104 MG/DL (74-106); IRON (FE) 201 UG/DL (65-175); PERCENT SATURATION 67.9 % (19.7-50.0); POTASSIUM SERUM 4.7 MMOL/L (3.5-5.1); SODIUM LEVEL 139 MMOL/L (136-145); TOTAL IRON BINDING CAPACITY 296 UG/DL (250-425); TOTAL PROTEIN 7.2 G/DL (5.7-8.2)
[2024-05-26 17:15] LABS: FERRITIN 79.6 NG/ML (10.5-307.3)
[2024-05-26 17:19] LABS: HEMOGLOBIN A1c 6.5 % (4.0-6.0)
[2024-05-26 17:20] LABS: INR 1.15; PARTIAL THROMBOPLASTIN TIME 25.8 SECONDS (24.8-34.2); PROTHROMBIN TIME 14.3 SECONDS (12.5-14.5)
== END ==
LOC: M PLALAB 14:47
PROVIDERS: ATTEND Family Medicine
DX: K74.00 Hepatic fibrosis, unspecified (principal); D50.9 Iron deficiency anemia, unspecified; R73.01 Impaired fasting glucose

== ENCOUNTER → 2024-06-29 | Outpatient (CLI) | payer MEDICARE, BC | LOC: M RAD 09:55 | PROVIDERS: ATTEND Orthopaedic Surgery | DX: M79.661 Pain in right lower leg (principal) ==

== ENCOUNTER → 2024-09-08 | Outpatient (CLI) | payer MEDICARE, BC | LOC: M CARPUL 12:56 | PROVIDERS: ATTEND Registered Nurse | DX: I77.810 Thoracic aortic ectasia (principal) ==

== ENCOUNTER → 2024-10-26 | Outpatient (CLI) | payer MEDICARE, BC ==
[2024-10-26 15:22] LABS: BASO # 0.1 10^3/uL (0.0-0.2); EOS # 0.1 10^3/uL (0.0-0.5); EOS % 1.7 % (0.0-3.0); HEMATOCRIT 45.5 % (42.0-52.0); HEMOGLOBIN 15.2 g/dl (13.5-17.5); LYMPH # 1.5 10^3/uL (1.5-5.0); LYMPH % 28.4 % (24.0-44.0); MEAN CORPUSCULAR HEMOGLOBIN 31.4 pg (27.0-33.0); MEAN CORPUSCULAR HGB CONC 33.4 g/dl (32.0-36.5); MONO # 0.5 10^3/uL (0.0-0.8); MONO % 8.6 % (2.0-8.0); NEUTROPHILS # 3.2 10^3/uL (1.5-8.5); NEUTROPHILS % 60.1 % (36.0-66.0); PLATELET COUNT, AUTOMATED 253 10^3/uL (150-450); RED BLOOD COUNT 4.84 10^6/uL (4.30-6.10); WHITE BLOOD COUNT 5.3 10^3/uL (4.0-10.0)
[2024-10-26 15:52] LABS: ALBUMIN 3.8 G/DL (3.2-5.2); ALKALINE PHOSPHATASE 78 U/L (40-129); ALT/SGPT 79 U/L (7.0-40); AST/SGOT 63 U/L (<34); BILIRUBIN,TOTAL 0.9 MG/DL (0.3-1.2); BLOOD UREA NITROGEN 12 MG/DL (9-23); CALCIUM LEVEL 9.3 MG/DL (8.3-10.6); CARBON DIOXIDE LEVEL 29 MMOL/L (20-31); CHLORIDE LEVEL 107 MMOL/L (98-107); CREATININE FOR GFR 0.97 MG/DL (0.70-1.30); GLOMERULAR FILTRATION RATE > 60.0 (>49); GLUCOSE, FASTING 107 MG/DL (74-106); MAGNESIUM LEVEL 2.1 MG/DL (1.8-2.4); POTASSIUM SERUM 4.9 MMOL/L (3.5-5.1); SODIUM LEVEL 144 MMOL/L (136-145); TOTAL PROTEIN 7.1 G/DL (5.7-8.2)
== END ==
LOC: M PLALAB 12:52
PROVIDERS: ATTEND Registered Nurse
DX: I50.22 Chronic systolic (congestive) heart failure (principal)

== ENCOUNTER → 2024-10-26 | Outpatient (CLI) | payer MEDICARE, BC ==
[2024-10-26 15:22] LABS: BASO # 0.1 10^3/uL (0.0-0.2); BASO % 0.9 % (0.0-1.0); EOS # 0.1 10^3/uL (0.0-0.5); EOS % 1.7 % (0.0-3.0); HEMATOCRIT 44.4 % (42.0-52.0); HEMOGLOBIN 15.3 g/dl (13.5-17.5); LYMPH # 1.5 10^3/uL (1.5-5.0); LYMPH % 27.9 % (24.0-44.0); MEAN CORPUSCULAR HEMOGLOBIN 32.5 pg (27.0-33.0); MEAN CORPUSCULAR HGB CONC 34.5 g/dl (32.0-36.5); MEAN CORPUSCULAR VOLUME 94.3 fl (80.0-96.0); MONO # 0.5 10^3/uL (0.0-0.8); MONO % 8.9 % (2.0-8.0); NEUTROPHILS # 3.2 10^3/uL (1.5-8.5); NEUTROPHILS % 60.4 % (36.0-66.0); PLATELET COUNT, AUTOMATED 252 10^3/uL (150-450); RED BLOOD COUNT 4.71 10^6/uL (4.30-6.10); WHITE BLOOD COUNT 5.3 10^3/uL (4.0-10.0)
[2024-10-26 15:41] LABS: HEMOGLOBIN A1c 6.2 % (4.0-6.0)
[2024-10-26 15:51] LABS: ALBUMIN 3.8 G/DL (3.2-5.2); ALKALINE PHOSPHATASE 77 U/L (40-129); ALT/SGPT 79 U/L (7.0-40); AST/SGOT 63 U/L (<34); BILIRUBIN,TOTAL 0.9 MG/DL (0.3-1.2); BLOOD UREA NITROGEN 12 MG/DL (9-23); CALCIUM LEVEL 9.6 MG/DL (8.3-10.6); CARBON DIOXIDE LEVEL 29 MMOL/L (20-31); CHLORIDE LEVEL 109 MMOL/L (98-107); CHOLESTEROL LEVEL 119 MG/DL (<200); CHOLESTEROL RISK RATIO 2.65 (<5); CREATININE FOR GFR 0.96 MG/DL (0.70-1.30); GLOMERULAR FILTRATION RATE > 60.0 (>49); GLUCOSE, FASTING 109 MG/DL (74-106); HDL CHOLESTEROL 44.8 MG/DL (>40); IRON (FE) 161 UG/DL (65-175); LDL CHOLESTEROL 61.2 MG/DL (<100); NON-HDL-C 74.2 MG/DL; PERCENT SATURATION 55.1 % (19.7-50.0); PSA SCREENING 0.32 NG/ML (< 4.00); SODIUM LEVEL 145 MMOL/L (136-145); TOTAL IRON BINDING CAPACITY 292 UG/DL (250-425); TOTAL PROTEIN 7.1 G/DL (5.7-8.2); TRIGLYCERIDES LEVEL 65 MG/DL (<150)
[2024-10-26 15:55] LABS: FERRITIN 62.2 NG/ML (10.5-307.3)
[2024-10-27 14:47] LABS: INSULIN LEVEL 6.5 uIU/mL (<=18.4)
[2024-10-29 20:03] LABS: ENHANCED LIVER FIBROSIS SCORE 11.28 (<9.80)
== END ==
LOC: M PLALAB 12:50
PROVIDERS: ATTEND Family Medicine
DX: D75.89 Other specified diseases of blood and blood-forming organs (principal); Z12.5 Encounter for screening for malignant neoplasm of prostate; K74.00 Hepatic fibrosis, unspecified; D50.9 Iron deficiency anemia, unspecified; R73.01 Impaired fasting glucose; R97.8 Other abnormal tumor markers; Z79.899 Other long term (current) drug therapy; I50.22 Chronic systolic (congestive) heart failure
CPT/HCPCS: 36415; 80053; 80061; 81517; 82728; 83036; 83525; 83550; 83735; 83880; 85025; G0103

== ENCOUNTER → 2024-11-12 | Outpatient (CLI) | payer MEDICARE, BC ==
[~2024-11-12] MED LIST changes: +ISOVUE-370 76% 100ML VIAL As Ordered ONE
== END ==
LOC: M RAD 08:51
PROVIDERS: ATTEND Family Medicine
DX: R40.4 Transient alteration of awareness (principal); I65.23 Occlusion and stenosis of bilateral carotid arteries
CPT/HCPCS: 70460; 70496; Q9967

== ENCOUNTER → 2024-11-23 | Outpatient (CLI) | payer MEDICARE, BC ==
[~2024-11-23] MED LIST changes: -ISOVUE-370 76% 100ML VIAL As Ordered ONE
== END ==
LOC: M SLEEP 07:59
PROVIDERS: ATTEND Family Medicine
DX: R40.4 Transient alteration of awareness (principal)

== ENCOUNTER → 2024-11-30 | Outpatient (CLI) | payer MEDICARE, BC ==
[2024-11-30 17:10] LABS: BASO # 0.1 10^3/uL (0.0-0.2); BASO % 1.1 % (0.0-1.0); EOS # 0.2 10^3/uL (0.0-0.5); EOS % 2.6 % (0.0-3.0); HEMATOCRIT 44.8 % (42.0-52.0); HEMOGLOBIN 14.9 g/dl (13.5-17.5); LYMPH % 31.5 % (24.0-44.0); MEAN CORPUSCULAR HEMOGLOBIN 31.2 pg (27.0-33.0); MEAN CORPUSCULAR HGB CONC 33.3 g/dl (32.0-36.5); MEAN CORPUSCULAR VOLUME 93.9 fl (80.0-96.0); MONO # 0.6 10^3/uL (0.0-0.8); MONO % 9.2 % (2.0-8.0); NEUTROPHILS # 3.4 10^3/uL (1.5-8.5); NEUTROPHILS % 55.3 % (36.0-66.0); PLATELET COUNT, AUTOMATED 249 10^3/uL (150-450); RED BLOOD COUNT 4.77 10^6/uL (4.30-6.10); WHITE BLOOD COUNT 6.2 10^3/uL (4.0-10.0)
[2024-11-30 17:41] LABS: TOTAL IRON BINDING CAPACITY 288 UG/DL (250-425)
[2024-11-30 17:42] LABS: ALBUMIN 3.7 G/DL (3.2-5.2); ALKALINE PHOSPHATASE 76 U/L (40-129); ALT/SGPT 65 U/L (7.0-40); AST/SGOT 40 U/L (<34); BILIRUBIN,TOTAL 0.6 MG/DL (0.3-1.2); BLOOD UREA NITROGEN 14 MG/DL (9-23); CALCIUM LEVEL 8.9 MG/DL (8.3-10.6); CARBON DIOXIDE LEVEL 24 MMOL/L (20-31); CHLORIDE LEVEL 109 MMOL/L (98-107); CHOLESTEROL LEVEL 104 MG/DL (<200); CHOLESTEROL RISK RATIO 2.28 (<5); CREATININE FOR GFR 0.85 MG/DL (0.70-1.30); GLOMERULAR FILTRATION RATE > 60.0 (>49); GLUCOSE, FASTING 97 MG/DL (74-106); HDL CHOLESTEROL 45.6 MG/DL (>40); IRON (FE) 87 UG/DL (65-175); LDL CHOLESTEROL 47.6 MG/DL (<100); MAGNESIUM LEVEL 2.3 MG/DL (1.8-2.4); NON-HDL-C 58.4 MG/DL; PERCENT SATURATION 30.2 % (19.7-50.0); PSA SCREENING 0.33 NG/ML (< 4.00); SODIUM LEVEL 141 MMOL/L (136-145); TOTAL PROTEIN 6.9 G/DL (5.7-8.2); TRIGLYCERIDES LEVEL 54 MG/DL (<150)
[2024-11-30 17:43] LABS: FERRITIN 40.7 NG/ML (10.5-307.3)
== END ==
LOC: M PLALAB 13:40
PROVIDERS: ATTEND Family Medicine
DX: K74.00 Hepatic fibrosis, unspecified (principal); D50.9 Iron deficiency anemia, unspecified; E11.9 Type 2 diabetes mellitus without complications; I50.20 Unspecified systolic (congestive) heart failure; Z12.5 Encounter for screening for malignant neoplasm of prostate
CPT/HCPCS: 36415; 80053; 80061; 82728; 83036; 83525; 83550; 83735; 83880; 85025; G0103

== ENCOUNTER → 2024-12-20 | Outpatient (CLI) | payer MEDICARE, BC ==
[2024-12-20 13:53] LABS: ALBUMIN 3.7 G/DL (3.2-5.2); BLOOD UREA NITROGEN 13 MG/DL (9-23); CALCIUM LEVEL 8.8 MG/DL (8.3-10.6); CARBON DIOXIDE LEVEL 27 MMOL/L (20-31); CHLORIDE LEVEL 108 MMOL/L (98-107); CREATININE FOR GFR 0.89 MG/DL (0.70-1.30); FREE T4 1.21 NG/DL (0.89-1.76); GLOMERULAR FILTRATION RATE > 60.0 (>49); GLUCOSE, FASTING 132 MG/DL (74-106); MAGNESIUM LEVEL 2.2 MG/DL (1.8-2.4); PHOSPHORUS LEVEL 2.8 MG/DL (2.4-5.1); POTASSIUM SERUM 4.4 MMOL/L (3.5-5.1); SODIUM LEVEL 142 MMOL/L (136-145); THYROID STIMULATING HORMONE 2.085 uIU/ML (0.55-4.78)
== END ==
LOC: M WUC 08:08
PROVIDERS: ATTEND Registered Nurse
DX: I50.22 Chronic systolic (congestive) heart failure (principal); I48.0 Paroxysmal atrial fibrillation

== ENCOUNTER → 2025-04-11 | Outpatient (CLI) | payer MEDICARE, BC ==
[~2025-04-11] MED LIST changes: +ACET32TAB PO; -AMIO200T49 PO; +AMIO200T54 PO; +CYCL-707 PO; +CYCL5TAB4 PO; +ENTR1TAB7 PO; +FARX1TAB3 PO; +METF750T36 PO; +PRED20TA PO
[2025-04-11 18:57] LABS: FREE T4 1.11 NG/DL (0.89-1.76)
== END ==
LOC: M PLALAB 13:57
PROVIDERS: ATTEND Registered Nurse
DX: I48.0 Paroxysmal atrial fibrillation (principal)

== ENCOUNTER → 2025-08-16 | Outpatient (CLI) | payer MEDICARE, BC ==
[2025-08-16 15:07] LABS: BASO # 0.0 10^3/uL (0.0-0.2); BASO % 0.7 % (0.0-1.0); EOS # 0.1 10^3/uL (0.0-0.5); EOS % 1.7 % (0.0-3.0); LYMPH # 1.8 10^3/uL (1.5-5.0); LYMPH % 31.6 % (24.0-44.0); MONO # 0.6 10^3/uL (0.0-0.8); MONO % 10.8 % (2.0-8.0); NEUTROPHILS # 3.2 10^3/uL (1.5-8.5); NEUTROPHILS % 55.0 % (36.0-66.0); PLATELET COUNT, AUTOMATED 286 10^3/uL (150-450)
[2025-08-16 15:19] LABS: ALT/SGPT 54 U/L (7.0-40); AST/SGOT 44 U/L (<34); CALCIUM LEVEL 9.2 MG/DL (8.3-10.6); CARBON DIOXIDE LEVEL 28 MMOL/L (20-31); CHLORIDE LEVEL 108 MMOL/L (98-107); CREATININE FOR GFR 0.98 MG/DL (0.70-1.30); GLOMERULAR FILTRATION RATE 83.0 (>42); IRON (FE) 57 UG/DL (65-175); MAGNESIUM LEVEL 2.1 MG/DL (1.8-2.4); PERCENT SATURATION 18.7 % (19.7-50.0); POTASSIUM SERUM 5.1 MMOL/L (3.5-5.1); SODIUM LEVEL 143 MMOL/L (136-145)
[2025-08-16 15:28] LABS: INR 1.1
[2025-08-16 15:31] LABS: ESTIMATED AVERAGE GLUCOSE 137.0 MG/DL (60-110)
== END ==
LOC: M PLALAB 13:23
PROVIDERS: ATTEND Family Medicine
DX: D50.9 Iron deficiency anemia, unspecified (principal); K74.00 Hepatic fibrosis, unspecified; I50.20 Unspecified systolic (congestive) heart failure; I77.810 Thoracic aortic ectasia; E11.9 Type 2 diabetes mellitus without complications

== ENCOUNTER → 2025-08-16 | Outpatient (CLI) | payer MEDICARE, BC | LOC: M PLAIMG 13:48 | PROVIDERS: ATTEND Registered Nurse | DX: I50.22 Chronic systolic (congestive) heart failure (principal); I77.810 Thoracic aortic ectasia ==